=== PATIENT | male | born 1950 | race African-American/Black ===

== ENCOUNTER 2017-03-21 05:45 | Inpatient (IN) ==
[2017-03-21 07:39] LABS: Basophils % 0.3 % (0.0-0.8); Eosinophils # 0.2 10*3/uL (0.0-0.87); Eosinophils % 1.5 % (0.00-10.9); Hemoglobin 13.4 GM/DL (14.0-18.0); Immature Granulocytes % 0.4 %; Immature Granulocytes Absolute 0.05 #; Lymphocytes # 1.9 10*3/uL (1.4-4.0); Lymphocytes % 16.1 % (21.2-54.2); Mean Corpuscular HGB Conc 31.2 GM/DL (32-36); Mean Corpuscular Hemoglobin 26 PG (27-34); Mean Corpuscular Volume 81.9 FL (87-102); Mean Platelet Volume 9.3 FL (9.6-12.0); Monocytes % 8.5 % (1.7-12.7); NRBC # 0.02 10*3/uL; Neutrophils # 8.6 10*3/uL (1.4-7.4); Neutrophils % 73.2 % (38.7-73.9); Platelet Count 194 T/CUMM (130-400); Red Blood Count 5.25 MC/CUMM (3.8-5.5); White Blood Count 11.7 T/CUMM (4-12)
[2017-03-21 08:13] LABS: Albumin 3.6 G/DL (3.4-5.0); Calcium 9.5 MG/DL (8.5-10.1); Osmolality,Calculated 273.2 MOS/KG (273-304); Potassium 3.7 MMOL/L (3.5-5.1); Total Protein 8.3 G/DL (6.4-8.3)
[2017-03-21 08:14] LABS: INR 5.1
[2017-03-21] MEDS ORDERED: ONDANSETRON 4 MG/2 ML VIAL IV STA (08:31)
[2017-03-21 08:47] LABS: Apearance,Urine CLOUDY (Clear); Bacteria,Urine Many /HPF (Few); Bilirubin,Urine Negative (Negative); Blood, Urine Large mg/dL (Negative); Glucose,Urine (UA) Negative (Negative); Ketones,Urine Negative (Negative); Mucus,Urine Many /LPF (Occasional); Nitrite,Urine Negative (Negative); Protein,Urine 30 MG/DL; RBC,Urine 30 /HPF (0-4); Urine Color Yellow (Yellow); Urine Specific Gravity 1.021 (1.001-1.035); Urine Urobilinogen < 2.0 EU/DL (0.2-1.0); WBC,Urine 137 /HPF (0-6)
[2017-03-21] MEDS ORDERED: cefTRIAXone 1,000 MG in SODIUM CHLORIDE 0.9% 100 ML IV STA (08:51)
[2017-03-21] MEDS ORDERED: ONDANSETRON 4 MG/2 ML VIAL ONE (09:26)
[2017-03-21] MEDS ORDERED: cefTRIAXone 1,000 MG VIAL ONE (09:26)
[2017-03-21] MEDS ORDERED: SODIUM CHLORIDE 0.9% IV STA (09:37)
[2017-03-21] MEDS ORDERED: CEFTRIAXONE IV STA (09:37)
[2017-03-21] MEDS ORDERED: ONDANSETRON 4 MG/2 ML VIAL IV PRN (09:50)
[2017-03-21] MEDS ORDERED: BISACODYL 10 MG SUPP RECTAL PRN (10:02)
[2017-03-21] MEDS: SODIUM CHLORIDE 0.9% 1,000 ML IV SCH ×3 (11:10→22:09)
[2017-03-21] MEDS: metroNIDAZOLE INJ 500 MG in PREMIX 1 EACH IV SCH ×2 (13:10→17:37)
[2017-03-21] MEDS: CIPROFLOXACIN INJ 400 MG in PREMIX 1 EACH IV SCH ×2 (14:20→22:01)
[2017-03-21] MEDS: MORPHINE 2 MG/1 ML SYRINGE IV PRN (16:47)
[2017-03-21] MEDS ORDERED: ALBUTEROL 2.5 MG/3 ML NEB RESP TX PRN (19:00)
[2017-03-21] MEDS: traZODone 50 MG TABLET PO SCH (21:41)
[2017-03-21] MEDS: CARVEDILOL 12.5 MG TABLET PO SCH (21:41)
[2017-03-21] MEDS: tiZANidine 4 MG TABLET PO SCH (21:41)
[2017-03-22] MEDS: metroNIDAZOLE INJ 500 MG in PREMIX 1 EACH IV SCH ×3 (01:31→17:21)
[2017-03-22] MEDS: SODIUM CHLORIDE 0.9% 1,000 ML IV SCH ×2 (06:32→15:52)
[2017-03-22 06:37] LABS: Basophils % 0.3 % (0.0-0.8); Eosinophils # 0.2 10*3/uL (0.0-0.87); Eosinophils % 2.4 % (0.00-10.9); Immature Granulocytes % 0.4 %; Immature Granulocytes Absolute 0.04 #; Lymphocytes # 1.5 10*3/uL (1.4-4.0); Lymphocytes % 15.5 % (21.2-54.2); Mean Corpuscular HGB Conc 31.7 GM/DL (32-36); Mean Corpuscular Hemoglobin 26 PG (27-34); Mean Corpuscular Volume 82.5 FL (87-102); Mean Platelet Volume 9.9 FL (9.6-12.0); Monocytes # 1.1 10*3/uL (0.11-0.8); Monocytes % 11.8 % (1.7-12.7); Neutrophils # 6.7 10*3/uL (1.4-7.4); Neutrophils % 69.6 % (38.7-73.9); Platelet Count 212 T/CUMM (130-400); Red Blood Count 4.97 MC/CUMM (3.8-5.5); White Blood Count 9.6 T/CUMM (4-12)
[2017-03-22 07:08] LABS: Calcium 9.3 MG/DL (8.5-10.1); Osmolality,Calculated 277.7 MOS/KG (273-304); Potassium 3.7 MMOL/L (3.5-5.1)
[2017-03-22] MEDS: DILTIAZEM CD 180 MG CAPSULE PO SCH (08:52)
[2017-03-22] MEDS: tiZANidine 4 MG TABLET PO SCH ×2 (08:52→22:01)
[2017-03-22] MEDS: POLYETHYLENE GLYCOL POWDER 17 GM PACK PO SCH (08:52)
[2017-03-22] MEDS: CARVEDILOL 12.5 MG TABLET PO SCH ×2 (08:52→22:01)
[2017-03-22] MEDS ORDERED: PHENOL 1.4% THROAT SPRAY 177 ML BOTTLE PO PRN (10:57)
[2017-03-22] MEDS: CIPROFLOXACIN INJ 400 MG in PREMIX 1 EACH IV SCH (11:30)
[2017-03-22] MEDS: PANTOPRAZOLE 40 MG VIAL IV SCH ×2 (12:14→21:58)
[2017-03-22 16:30] LABS: Hematocrit 41.9 VOL% (42.0-52.0); Hemoglobin 12.7 GM/DL (14.0-18.0)
[2017-03-22] MEDS: traZODone 50 MG TABLET PO SCH (22:01)
[2017-03-22] MEDS: MORPHINE 2 MG/1 ML SYRINGE IV PRN (22:02)
[2017-03-23] MEDS: CIPROFLOXACIN INJ 400 MG in PREMIX 1 EACH IV SCH ×2 (00:31→16:41)
[2017-03-23] MEDS: SODIUM CHLORIDE 0.9% 1,000 ML IV SCH ×3 (00:38→14:14)
[2017-03-23] MEDS ORDERED: hydrALAZINE 20 MG/1 ML VIAL IV PRN (00:54)
[2017-03-23] MEDS: MORPHINE 2 MG/1 ML SYRINGE IV PRN ×2 (02:26→06:24)
[2017-03-23] MEDS: metroNIDAZOLE INJ 500 MG in PREMIX 1 EACH IV SCH ×2 (04:19→17:49)
[2017-03-23 06:37] LABS: Basophils % 0.3 % (0.0-0.8); Eosinophils # 0.2 10*3/uL (0.0-0.87); Hematocrit 42.6 VOL% (42.0-52.0); Hemoglobin 13.2 GM/DL (14.0-18.0); Immature Granulocytes % 0.4 %; Immature Granulocytes Absolute 0.04 #; Lymphocytes # 1.4 10*3/uL (1.4-4.0); Lymphocytes % 13.8 % (21.2-54.2); Mean Corpuscular Hemoglobin 26 PG (27-34); Mean Corpuscular Volume 82.7 FL (87-102); Monocytes # 1.1 10*3/uL (0.11-0.8); Monocytes % 11.2 % (1.7-12.7); Neutrophils # 7.1 10*3/uL (1.4-7.4); Neutrophils % 72.3 % (38.7-73.9); Platelet Count 200 T/CUMM (130-400); Red Blood Count 5.15 MC/CUMM (3.8-5.5); Red Cell Distribution Width 16.8 % (9.3-17.3); White Blood Count 9.9 T/CUMM (4-12)
[2017-03-23 07:05] LABS: Calcium 9.4 MG/DL (8.5-10.1); Osmolality,Calculated 282.3 MOS/KG (273-304); Potassium 3.2 MMOL/L (3.5-5.1)
[2017-03-23 07:11] LABS: INR 7.7
[2017-03-23] MEDS ORDERED: SODIUM CHLORIDE 0.9% 1,000 ML IV ONE (07:46)
[2017-03-23 07:58] LABS: Hematocrit 43.4 VOL% (42.0-52.0)
[2017-03-23 08:43] LABS: INR 7.6; PT Patient Result 74.3 SECS
[2017-03-23] MEDS ORDERED: PHYTONADIONE 10 MG/1 ML AMP SUBCUT ONE (08:55)
[2017-03-23] MEDS ORDERED: SODIUM CHLORIDE 0.9% 1,000 ML IV PRN (08:55)
[2017-03-23] MEDS ORDERED: FUROSEMIDE 40 MG/4 ML VIAL IV ONE (08:55)
[2017-03-23 09:52] LABS: Lactic Acid 0.7 MMOL/L (0.4-2.0)
[2017-03-23 10:11] LABS: Albumin 3.5 G/DL (3.4-5.0); Bilirubin,Direct 0.31 MG/DL (0.0-0.20); Bilirubin,Indirect 0.9 MG/DL (0.0-1.0); Bilirubin,Total 1.2 MG/DL (0.2-1.0); Total Protein 7.9 G/DL (6.4-8.3)
[2017-03-23] MEDS: PANTOPRAZOLE 40 MG VIAL IV SCH ×2 (10:19→21:02)
[2017-03-23] MEDS: DILTIAZEM CD 180 MG CAPSULE PO SCH (10:19)
[2017-03-23] MEDS: DEXTROSE 5% NACL 0.9% 1,000 ML IV SCH (10:19)
[2017-03-23] MEDS: tiZANidine 4 MG TABLET PO SCH ×2 (10:20→21:00)
[2017-03-23] MEDS: CARVEDILOL 12.5 MG TABLET PO SCH (10:20)
[2017-03-23] MEDS: POLYETHYLENE GLYCOL POWDER 17 GM PACK PO SCH (10:20)
[2017-03-23] MEDS: BISACODYL 10 MG SUPP RECTAL SCH (14:20)
[2017-03-23] MEDS: METOPROLOL TARTRATE 5 MG/5 ML VIAL IV SCH ×2 (14:25→18:30)
[2017-03-23 18:50] LABS: Hemoglobin 12.1 GM/DL (14.0-18.0)
[2017-03-23] MEDS: traZODone 50 MG TABLET PO SCH (21:00)
[2017-03-24 00:19] LABS: Hematocrit 40.3 VOL% (42.0-52.0)
[2017-03-24 00:22] LABS: Hemoglobin 12.2 GM/DL (14.0-18.0)
[2017-03-24] MEDS ORDERED: SODIUM CHLORIDE 0.9% 500 ML IV ONE (02:02)
[2017-03-24] MEDS: METOPROLOL TARTRATE 5 MG/5 ML VIAL IV SCH ×2 (02:16→07:28)
[2017-03-24] MEDS: metroNIDAZOLE INJ 500 MG in PREMIX 1 EACH IV SCH ×3 (02:17→20:40)
[2017-03-24] MEDS: DEXTROSE 5% NACL 0.9% 1,000 ML IV SCH ×4 (03:31→20:43)
[2017-03-24] MEDS: CIPROFLOXACIN INJ 400 MG in PREMIX 1 EACH IV SCH ×2 (04:40→15:00)
[2017-03-24 05:09] LABS: Basophils % 0.2 % (0.0-0.8); Eosinophils # 0.2 10*3/uL (0.0-0.87); Eosinophils % 2.1 % (0.00-10.9); Hematocrit 38.4 VOL% (42.0-52.0); Hemoglobin 11.8 GM/DL (14.0-18.0); Immature Granulocytes % 0.4 %; Immature Granulocytes Absolute 0.04 #; Lymphocytes # 1.2 10*3/uL (1.4-4.0); Mean Corpuscular HGB Conc 30.7 GM/DL (32-36); Mean Corpuscular Hemoglobin 26 PG (27-34); Mean Corpuscular Volume 83.7 FL (87-102); Mean Platelet Volume 9.6 FL (9.6-12.0); Monocytes # 0.9 10*3/uL (0.11-0.8); Monocytes % 9.7 % (1.7-12.7); Neutrophils # 6.9 10*3/uL (1.4-7.4); Neutrophils % 74.6 % (38.7-73.9); Platelet Count 178 T/CUMM (130-400); Red Blood Count 4.59 MC/CUMM (3.8-5.5); Red Cell Distribution Width 16.6 % (9.3-17.3); White Blood Count 9.2 T/CUMM (4-12)
[2017-03-24 05:29] LABS: INR 1.6
[2017-03-24 05:39] LABS: Calcium 9.1 MG/DL (8.5-10.1); Potassium 3.2 MMOL/L (3.5-5.1)
[2017-03-24 05:42] LABS: Albumin 3.5 G/DL (3.4-5.0); Bilirubin,Total 2.7 MG/DL (0.2-1.0); Calcium 9.2 MG/DL (8.5-10.1); Hematocrit 38.1 VOL% (42.0-52.0); Hemoglobin 11.5 GM/DL (14.0-18.0); Magnesium 2.1 MG/DL (1.8-2.4); Phosphorous 2.5 MG/DL (2.5-4.9); Potassium 3.1 MMOL/L (3.5-5.1); Total Protein 7.6 G/DL (6.4-8.3)
[2017-03-24 05:44] LABS: PT Patient Result 16.9 SECS
[2017-03-24] MEDS ORDERED: POTASSIUM CHLORIDE RIDER 10 MEQ in PREMIX 1 EACH IV PRN (07:12)
[2017-03-24 10:16] LABS: Hematocrit 38.8 VOL% (42.0-52.0); Hemoglobin 11.7 GM/DL (14.0-18.0)
[2017-03-24] MEDS: PANTOPRAZOLE 40 MG VIAL IV SCH ×2 (10:17→20:40)
[2017-03-24] MEDS ORDERED: MIDAZOLAM 2 MG/2 ML VIAL ONE (11:27)
[2017-03-24] MEDS ORDERED: fentaNYL 100 MCG/2 ML VIAL ONE (11:28)
[2017-03-24] MEDS ORDERED: PROPOFOL 200 MG/20 ML VIAL IV ONE (11:29)
[2017-03-24] MEDS ORDERED: SUCCINYLCHOLINE 200 MG/10 ML VIAL ONE (11:30)
[2017-03-24] MEDS: POLYETHYLENE GLYCOL POWDER 17 GM PACK PO SCH (12:35)
[2017-03-24] MEDS: BISACODYL 10 MG SUPP RECTAL SCH (12:35)
[2017-03-24] MEDS: tiZANidine 4 MG TABLET PO SCH ×2 (12:42→20:39)
[2017-03-24] MEDS: DILTIAZEM CD 180 MG CAPSULE PO SCH (12:42)
[2017-03-24] MEDS: traZODone 50 MG TABLET PO SCH (20:39)
[2017-03-24] MEDS ORDERED: SODIUM CHLORIDE 0.9% IV ONE (23:00)
[2017-03-24] MEDS ORDERED: POTASSIUM CHLORIDE RIDER IV ONE (23:00)
[2017-03-24] MEDS ORDERED: POTASSIUM CHLORIDE INJ 40 MEQ in SODIUM CHLORIDE 0.9% 500 ML IV ONE (23:30)
[2017-03-25] MEDS: CIPROFLOXACIN INJ 400 MG in PREMIX 1 EACH IV SCH ×2 (05:35→22:20)
[2017-03-25 05:42] LABS: Basophils % 0.2 % (0.0-0.8); Eosinophils # 0.3 10*3/uL (0.0-0.87); Eosinophils % 3.1 % (0.00-10.9); Hematocrit 34.6 VOL% (42.0-52.0); Hemoglobin 10.3 GM/DL (14.0-18.0); Immature Granulocytes % 0.4 %; Immature Granulocytes Absolute 0.04 #; Lymphocytes # 1.2 10*3/uL (1.4-4.0); Lymphocytes % 12.3 % (21.2-54.2); Mean Corpuscular HGB Conc 29.8 GM/DL (32-36); Mean Corpuscular Hemoglobin 26 PG (27-34); Mean Corpuscular Volume 86.3 FL (87-102); Mean Platelet Volume 9.9 FL (9.6-12.0); Monocytes # 0.9 10*3/uL (0.11-0.8); Neutrophils # 7.2 10*3/uL (1.4-7.4); Platelet Count 175 T/CUMM (130-400); Red Blood Count 4.01 MC/CUMM (3.8-5.5); White Blood Count 9.6 T/CUMM (4-12)
[2017-03-25] MEDS: metroNIDAZOLE INJ 500 MG in PREMIX 1 EACH IV SCH ×3 (05:58→21:03)
[2017-03-25 06:27] LABS: Albumin 3.2 G/DL (3.4-5.0); Bilirubin,Total 2.1 MG/DL (0.2-1.0); Calcium 8.8 MG/DL (8.5-10.1); Magnesium 1.9 MG/DL (1.8-2.4); Osmolality,Calculated 281.3 MOS/KG (273-304); Phosphorous 2.1 MG/DL (2.5-4.9); Potassium 3.4 MMOL/L (3.5-5.1); Total Protein 7.2 G/DL (6.4-8.3)
[2017-03-25 06:29] LABS: INR 1.6; PT Patient Result 16.5 SECS
[2017-03-25] MEDS: PANTOPRAZOLE 40 MG VIAL IV SCH ×2 (10:54→21:04)
[2017-03-25] MEDS: DILTIAZEM CD 180 MG CAPSULE PO SCH (10:54)
[2017-03-25] MEDS: tiZANidine 4 MG TABLET PO SCH ×2 (10:54→21:04)
[2017-03-25] MEDS: BISACODYL 10 MG SUPP RECTAL SCH (10:54)
[2017-03-25] MEDS: POLYETHYLENE GLYCOL POWDER 17 GM PACK PO SCH (10:55)
[2017-03-25] MEDS ORDERED: SODIUM PHOSPHATE INJ 15 MMOL in SODIUM CHLORIDE 0.9% 250 ML IV ONE (12:00)
[2017-03-25] MEDS: DEXTROSE 5% NACL 0.9% 1,000 ML IV SCH (13:48)
[2017-03-25] MEDS: traZODone 50 MG TABLET PO SCH (21:04)
[2017-03-26] MEDS: DEXTROSE 5% NACL 0.9% 1,000 ML IV SCH ×3 (03:30→18:50)
[2017-03-26] MEDS: metroNIDAZOLE INJ 500 MG in PREMIX 1 EACH IV SCH ×2 (04:37→15:39)
[2017-03-26 09:47] LABS: Basophils % 0.5 % (0.0-0.8); Eosinophils # 0.2 10*3/uL (0.0-0.87); Eosinophils % 3.3 % (0.00-10.9); Hematocrit 31.4 VOL% (42.0-52.0); Hemoglobin 9.6 GM/DL (14.0-18.0); Immature Granulocytes % 0.4 %; Immature Granulocytes Absolute 0.02 #; Lymphocytes # 1.2 10*3/uL (1.4-4.0); Lymphocytes % 22.5 % (21.2-54.2); Mean Corpuscular HGB Conc 30.6 GM/DL (32-36); Mean Corpuscular Hemoglobin 26 PG (27-34); Mean Corpuscular Volume 85.3 FL (87-102); Mean Platelet Volume 9.5 FL (9.6-12.0); Monocytes # 0.6 10*3/uL (0.11-0.8); Monocytes % 11.1 % (1.7-12.7); Neutrophils # 3.4 10*3/uL (1.4-7.4); Neutrophils % 62.2 % (38.7-73.9); Platelet Count 171 T/CUMM (130-400); Red Blood Count 3.68 MC/CUMM (3.8-5.5); Red Cell Distribution Width 15.9 % (9.3-17.3); White Blood Count 5.5 T/CUMM (4-12)
[2017-03-26 09:55] LABS: INR 1.6; PT Patient Result 16.7 SECS
[2017-03-26] MEDS ORDERED: FLUMAZENIL 0.5 MG/5 ML VIAL IV ONE (10:00)
[2017-03-26] MEDS ORDERED: MIDAZOLAM 2 MG/2 ML VIAL ONE (10:00)
[2017-03-26] MEDS ORDERED: LIDOCAINE 2% 20 ML VIAL RESP TX ONE (10:00)
[2017-03-26] MEDS ORDERED: LIDOCAINE 2% VISCOUS 100 ML BOTTLE SWISH/SPIT ONE (10:00)
[2017-03-26] MEDS ORDERED: LIDOCAINE 1% 20 ML VIAL MISC INJ ONE (10:00)
[2017-03-26] MEDS: CIPROFLOXACIN INJ 400 MG in PREMIX 1 EACH IV SCH (11:13)
[2017-03-26] MEDS: BISACODYL 10 MG SUPP RECTAL SCH (11:13)
[2017-03-26] MEDS: PANTOPRAZOLE 40 MG VIAL IV SCH ×2 (11:14→22:02)
[2017-03-26] MEDS: tiZANidine 4 MG TABLET PO SCH ×2 (13:02→22:02)
[2017-03-26] MEDS: DILTIAZEM CD 180 MG CAPSULE PO SCH (13:02)
[2017-03-26] MEDS: POLYETHYLENE GLYCOL POWDER 17 GM PACK PO SCH (13:03)
[2017-03-26] MEDS: MEROPENEM 500 MG in SYRINGE 1 EACH IV SCH ×2 (14:12→22:01)
[2017-03-26] MEDS: VANCOMYCIN INJ 2,000 MG in SODIUM CHLORIDE 0.9% 500 ML IV SCH (15:03)
[2017-03-26] MEDS: traZODone 50 MG TABLET PO SCH (22:02)
[2017-03-27] MEDS: DEXTROSE 5% NACL 0.9% 1,000 ML IV SCH (03:50)
[2017-03-27] MEDS: MEROPENEM 500 MG in SYRINGE 1 EACH IV SCH ×3 (05:49→22:10)
[2017-03-27 06:29] LABS: Basophils % 0.8 % (0.0-0.8); Eosinophils # 0.2 10*3/uL (0.0-0.87); Eosinophils % 3.5 % (0.00-10.9); Hematocrit 31.5 VOL% (42.0-52.0); Hemoglobin 9.6 GM/DL (14.0-18.0); Immature Granulocytes % 0.4 %; Immature Granulocytes Absolute 0.02 #; Lymphocytes % 20.6 % (21.2-54.2); Mean Corpuscular HGB Conc 30.5 GM/DL (32-36); Mean Corpuscular Hemoglobin 26 PG (27-34); Mean Corpuscular Volume 83.8 FL (87-102); Monocytes # 0.5 10*3/uL (0.11-0.8); Monocytes % 10.8 % (1.7-12.7); Neutrophils # 3.1 10*3/uL (1.4-7.4); Neutrophils % 63.9 % (38.7-73.9); Platelet Count 188 T/CUMM (130-400); Red Blood Count 3.76 MC/CUMM (3.8-5.5); Red Cell Distribution Width 15.6 % (9.3-17.3); White Blood Count 4.8 T/CUMM (4-12)
[2017-03-27 06:37] LABS: INR 1.5; PT Patient Result 15.4 SECS
[2017-03-27 07:06] LABS: Albumin 2.7 G/DL (3.4-5.0); Bilirubin,Total 1.1 MG/DL (0.2-1.0); Calcium 8.2 MG/DL (8.5-10.1); Magnesium 1.8 MG/DL (1.8-2.4); Osmolality,Calculated 277.3 MOS/KG (273-304); Phosphorous 2.7 MG/DL (2.5-4.9); Total Protein 6.4 G/DL (6.4-8.3)
[2017-03-27] MEDS: PANTOPRAZOLE 40 MG VIAL IV SCH ×2 (09:13→22:17)
[2017-03-27] MEDS: DILTIAZEM CD 180 MG CAPSULE PO SCH (09:13)
[2017-03-27] MEDS: tiZANidine 4 MG TABLET PO SCH ×2 (09:13→22:10)
[2017-03-27] MEDS: BISACODYL 10 MG SUPP RECTAL SCH (09:13)
[2017-03-27] MEDS: POLYETHYLENE GLYCOL POWDER 17 GM PACK PO SCH (09:13)
[2017-03-27] MEDS ORDERED: POTASSIUM CHLORIDE INJ 50 MEQ in SODIUM CHLORIDE 0.9% 500 ML IV ONE (11:30)
[2017-03-27] MEDS: APIXABAN 5 MG TABLET PO SCH ×2 (13:04→22:10)
[2017-03-27] MEDS: VANCOMYCIN INJ 2,000 MG in SODIUM CHLORIDE 0.9% 500 ML IV SCH (17:40)
[2017-03-27] MEDS: traZODone 50 MG TABLET PO SCH (22:10)
[2017-03-28] MEDS: MEROPENEM 500 MG in SYRINGE 1 EACH IV SCH (04:23)
[2017-03-28] MEDS: DILTIAZEM CD 180 MG CAPSULE PO SCH (08:24)
[2017-03-28] MEDS: POLYETHYLENE GLYCOL POWDER 17 GM PACK PO SCH (08:24)
[2017-03-28] MEDS: BISACODYL 10 MG SUPP RECTAL SCH (08:24)
[2017-03-28] MEDS: APIXABAN 5 MG TABLET PO SCH (08:24)
[2017-03-28] MEDS: tiZANidine 4 MG TABLET PO SCH (08:24)
[2017-03-28] MEDS: PANTOPRAZOLE 40 MG VIAL IV SCH (08:25)
[2017-03-28 08:34] VITALS: BP 125/77
[2017-03-28] MEDS: DEXTROSE 5% NACL 0.9% 1,000 ML IV SCH (10:14)
== END 2017-03-28 10:15 | DRG 988 ==
LOC: EDUNIT# → EDBD → N.ED 05:45 → N.EDINP 09:20 → SUATTDRO 09:20 → N.5E 09:30 → N.CC 03-23 08:22 → N.2E 03-25 01:04
PROVIDERS: ATTEND Internal Medicine Geriatric Medicine

== ENCOUNTER 2017-06-02 11:49 | Inpatient (IN) ==
[2017-06-02 12:44] LABS: Basophils % 0.2 % (0.0-0.8); Eosinophils # 0.2 10*3/uL (0.0-0.87); Eosinophils % 2.1 % (0.00-10.9); Hematocrit 37.1 VOL% (42.0-52.0); Hemoglobin 11.6 GM/DL (14.0-18.0); Immature Granulocytes % 0.2 %; Immature Granulocytes Absolute 0.02 #; Lymphocytes % 11.5 % (21.2-54.2); Mean Corpuscular HGB Conc 31.3 GM/DL (32-36); Mean Corpuscular Hemoglobin 27 PG (27-34); Mean Corpuscular Volume 85.5 FL (87-102); Mean Platelet Volume 11.2 FL (9.6-12.0); Monocytes # 0.7 10*3/uL (0.11-0.8); Neutrophils # 6.6 10*3/uL (1.4-7.4); Platelet Count 179 T/CUMM (130-400); Red Blood Count 4.34 MC/CUMM (3.8-5.5); Red Cell Distribution Width 16.4 % (9.3-17.3); White Blood Count 8.5 T/CUMM (4-12)
[2017-06-02 12:48] LABS: INR 1.1; PT Patient Result 11.1 SECS; Partial Thromboplastin Time 29.1 SECS (0-40)
[2017-06-02] MEDS ORDERED: FUROSEMIDE 40 MG/4 ML VIAL IV STA (12:54)
[2017-06-02 13:02] LABS: Alanine Aminotransferase 11 U/L (16-61); Alkaline Phosphatase 69 U/L (45-117); Aspartate Amino Transferase 19 U/L (0-37); Blood Urea Nitrogen 10 MG/DL (7-18); Calcium 8.6 MG/DL (8.5-10.1); Glucose 105 MG/DL (74-106); Osmolality,Calculated 277.4 MOS/KG (273-304); Potassium 3.2 MMOL/L (3.5-5.1); Sodium 140 MMOL/L (136-145); Total Protein 6.9 G/DL (6.4-8.3); Troponin I Only < 0.015 NG/ML (0.00-0.045)
[2017-06-02 14:57] LABS: ABG Base Excess 16.5 MMOL/L (-2.5-2.5); ABG HCO3 40.5 MMOL/L (20-26); ABG Oxygen Saturation 96.1 % (95-100); ABG PH 7.315 (7.35-7.45); ABG PO2 86.3 MM HG (80-95); ABG TCO2 42.9 MMOL/L (23-27); Allen Test Positive
[2017-06-02 15:00] LABS: ABG PCO2 93.7 MM HG (35-48)
[2017-06-02] MEDS ORDERED: BISACODYL 10 MG SUPP RECTAL PRN (15:47)
[2017-06-02] MEDS ORDERED: ALBUTEROL 2.5 MG/3 ML NEB RESP TX PRN ×2 (15:47→15:55)
[2017-06-02] MEDS ORDERED: MAGNESIUM HYDROXIDE SUSP 30 ML UDCUP PO PRN (15:47)
[2017-06-02] MEDS ORDERED: ONDANSETRON 4 MG/2 ML VIAL IV PRN (15:55)
[2017-06-02] MEDS ORDERED: POTASSIUM CHLORIDE 20 MEQ TABLET PO PRN (16:05)
[2017-06-02] MEDS ORDERED: PANTOPRAZOLE 40 MG VIAL IV ONE (17:24)
[2017-06-02] MEDS: PANTOPRAZOLE 40 MG VIAL IV SCH (17:56)
[2017-06-02] MEDS: POTASSIUM CHLORIDE 20 MEQ TABLET PO SCH ×2 (18:04→22:09)
[2017-06-02] MEDS: METOCLOPRAMIDE 10 MG TABLET PO SCH (18:04)
[2017-06-02] MEDS: ERTAPENEM 1,000 MG in SODIUM CHLORIDE 0.9% 100 ML IV SCH (18:05)
[2017-06-02] MEDS: CARVEDILOL 12.5 MG TABLET PO SCH (22:08)
[2017-06-02] MEDS: ACETAMINOPHEN 325 MG TABLET PO SCH (22:08)
[2017-06-02] MEDS: FERROUS SULFATE 325 MG TABLET PO SCH (22:09)
[2017-06-02] MEDS: MENTHOL/ZINC OXIDE OINT 71 GM JAR TOP SCH (23:25)
[2017-06-03] MEDS: POTASSIUM CHLORIDE 20 MEQ TABLET PO SCH ×5 (02:16→16:25)
[2017-06-03 02:58] LABS: ABG Base Excess 18.6 MMOL/L (-2.5-2.5); ABG HCO3 42.7 MMOL/L (20-26); ABG PH 7.433 (7.35-7.45); ABG PO2 61.2 MM HG (80-95); Allen Test Positive; Pt O2 Delivery Device BIPAP
[2017-06-03 03:01] LABS: ABG PCO2 70.3 MM HG (35-48)
[2017-06-03 04:51] LABS: Basophils % 0.2 % (0.0-0.8); Eosinophils # 0.2 10*3/uL (0.0-0.87); Eosinophils % 2.9 % (0.00-10.9); Hematocrit 37.9 VOL% (42.0-52.0); Hemoglobin 11.4 GM/DL (14.0-18.0); Immature Granulocytes % 0.5 %; Immature Granulocytes Absolute 0.03 #; Lymphocytes # 0.9 10*3/uL (1.4-4.0); Lymphocytes % 13.6 % (21.2-54.2); Mean Corpuscular HGB Conc 30.1 GM/DL (32-36); Mean Corpuscular Hemoglobin 26 PG (27-34); Mean Corpuscular Volume 86.1 FL (87-102); Mean Platelet Volume 9.7 FL (9.6-12.0); Monocytes # 0.8 10*3/uL (0.11-0.8); Monocytes % 11.7 % (1.7-12.7); Neutrophils # 4.7 10*3/uL (1.4-7.4); Neutrophils % 71.1 % (38.7-73.9); Platelet Count 147 T/CUMM (130-400); White Blood Count 6.6 T/CUMM (4-12)
[2017-06-03 05:24] LABS: Calcium 9.1 MG/DL (8.5-10.1); Osmolality,Calculated 276.4 MOS/KG (273-304); Potassium 3.3 MMOL/L (3.5-5.1)
[2017-06-03] MEDS ORDERED: FUROSEMIDE 40 MG/4 ML VIAL IV SCH (09:00)
[2017-06-03] MEDS: METOCLOPRAMIDE 10 MG TABLET PO SCH ×3 (09:18→16:25)
[2017-06-03] MEDS: ALLOPURINOL 300 MG TABLET PO SCH (09:19)
[2017-06-03] MEDS: POLYETHYLENE GLYCOL POWDER 17 GM PACK PO SCH (09:19)
[2017-06-03] MEDS: LINACLOTIDE 145 MCG CAPSULE PO SCH (09:19)
[2017-06-03] MEDS: FERROUS SULFATE 325 MG TABLET PO SCH ×2 (09:21→21:51)
[2017-06-03] MEDS: MULTIVITAMIN (CENTRUM) TABLET PO SCH (09:21)
[2017-06-03] MEDS: ACETAMINOPHEN 325 MG TABLET PO SCH ×2 (09:21→21:51)
[2017-06-03] MEDS: CARVEDILOL 12.5 MG TABLET PO SCH ×3 (09:21→21:51)
[2017-06-03] MEDS: DILTIAZEM CD 180 MG CAPSULE PO SCH (09:22)
[2017-06-03] MEDS: CALCIUM (CARBONATE)/VITAMIN D 600 MG-400 UNIT TABLET PO SCH (09:23)
[2017-06-03] MEDS: MENTHOL/ZINC OXIDE OINT 71 GM JAR TOP SCH ×3 (09:23→21:51)
[2017-06-03] MEDS: ENOXAPARIN 40 MG/0.4 ML SYRINGE SUBCUT SCH (12:14)
[2017-06-03] MEDS: PANTOPRAZOLE 40 MG VIAL IV SCH (16:26)
[2017-06-03] MEDS: ERTAPENEM 1,000 MG in SODIUM CHLORIDE 0.9% 100 ML IV SCH (17:46)
[2017-06-04 05:19] LABS: Pt O2 Delivery Device Ventilator
[2017-06-04 05:21] LABS: ABG Base Excess 9.5 MMOL/L (-2.5-2.5); ABG HCO3 33.3 MMOL/L (20-26); ABG Oxygen Saturation 98.5 % (95-100); ABG PH 7.298 (7.35-7.45); ABG TCO2 35.6 MMOL/L (23-27)
[2017-06-04 05:23] LABS: ABG PCO2 80.6 MM HG (35-48)
[2017-06-04 06:18] LABS: Osmolality,Calculated 277.4 MOS/KG (273-304); Potassium 4.3 MMOL/L (3.5-5.1)
[2017-06-04 06:19] LABS: Calcium 8.9 MG/DL (8.5-10.1); Osmolality,Calculated 277.4 MOS/KG (273-304); Potassium 4.2 MMOL/L (3.5-5.1)
[2017-06-04] MEDS: LINACLOTIDE 145 MCG CAPSULE PO SCH (09:02)
[2017-06-04] MEDS: METOCLOPRAMIDE 10 MG TABLET PO SCH ×3 (09:02→16:31)
[2017-06-04] MEDS: MENTHOL/ZINC OXIDE OINT 71 GM JAR TOP SCH ×3 (09:03→21:49)
[2017-06-04] MEDS: POLYETHYLENE GLYCOL POWDER 17 GM PACK PO SCH (09:03)
[2017-06-04] MEDS: ALLOPURINOL 300 MG TABLET PO SCH (09:03)
[2017-06-04] MEDS: DILTIAZEM CD 180 MG CAPSULE PO SCH (09:04)
[2017-06-04] MEDS: CALCIUM (CARBONATE)/VITAMIN D 600 MG-400 UNIT TABLET PO SCH (09:04)
[2017-06-04] MEDS: CARVEDILOL 12.5 MG TABLET PO SCH ×2 (09:05→21:49)
[2017-06-04] MEDS: MULTIVITAMIN (CENTRUM) TABLET PO SCH (09:05)
[2017-06-04] MEDS: FERROUS SULFATE 325 MG TABLET PO SCH ×2 (09:05→21:49)
[2017-06-04] MEDS: ACETAMINOPHEN 325 MG TABLET PO SCH ×2 (09:06→21:48)
[2017-06-04] MEDS: ENOXAPARIN 40 MG/0.4 ML SYRINGE SUBCUT SCH (12:03)
[2017-06-04] MEDS: PANTOPRAZOLE 40 MG VIAL IV SCH (16:31)
[2017-06-04] MEDS: ERTAPENEM 1,000 MG in SODIUM CHLORIDE 0.9% 100 ML IV SCH (18:00)
[2017-06-05 03:44] LABS: ABG Base Excess 6.5 MMOL/L (-2.5-2.5); ABG HCO3 35.2 MMOL/L (20-26); ABG PH 7.306 (7.35-7.45); ABG PO2 108.1 MM HG (80-95); ABG TCO2 37.4 MMOL/L (23-27)
[2017-06-05 03:48] LABS: ABG PCO2 72.1 MM HG (35-48)
[2017-06-05 05:52] LABS: Calcium 9.5 MG/DL (8.5-10.1); Osmolality,Calculated 276.5 MOS/KG (273-304); Potassium 4.3 MMOL/L (3.5-5.1)
[2017-06-05] MEDS: DILTIAZEM CD 180 MG CAPSULE PO SCH (08:55)
[2017-06-05] MEDS: CALCIUM (CARBONATE)/VITAMIN D 600 MG-400 UNIT TABLET PO SCH (08:55)
[2017-06-05] MEDS: MULTIVITAMIN (CENTRUM) TABLET PO SCH (08:55)
[2017-06-05] MEDS: ALLOPURINOL 300 MG TABLET PO SCH (08:56)
[2017-06-05] MEDS: ACETAMINOPHEN 325 MG TABLET PO SCH ×2 (08:56→20:56)
[2017-06-05] MEDS: CARVEDILOL 12.5 MG TABLET PO SCH ×2 (08:56→20:56)
[2017-06-05] MEDS: POLYETHYLENE GLYCOL POWDER 17 GM PACK PO SCH (08:56)
[2017-06-05] MEDS: LINACLOTIDE 145 MCG CAPSULE PO SCH (08:56)
[2017-06-05] MEDS: FERROUS SULFATE 325 MG TABLET PO SCH ×2 (08:56→20:55)
[2017-06-05] MEDS: METOCLOPRAMIDE 10 MG TABLET PO SCH ×3 (08:56→17:33)
[2017-06-05] MEDS: MENTHOL/ZINC OXIDE OINT 71 GM JAR TOP SCH ×3 (08:57→20:58)
[2017-06-05 10:13] LABS: ABG Base Excess 6.6 MMOL/L (-2.5-2.5); ABG HCO3 30.4 MMOL/L (20-26); ABG Oxygen Saturation 94.9 % (95-100); ABG PH 7.305 (7.35-7.45); ABG PO2 78.5 MM HG (80-95); ABG TCO2 32.1 MMOL/L (23-27)
[2017-06-05 10:18] LABS: ABG PCO2 71.9 MM HG (35-48)
[2017-06-05] MEDS: ENOXAPARIN 40 MG/0.4 ML SYRINGE SUBCUT SCH (11:41)
[2017-06-05] MEDS: PANTOPRAZOLE 40 MG VIAL IV SCH (17:33)
[2017-06-05] MEDS: ERTAPENEM 1,000 MG in SODIUM CHLORIDE 0.9% 100 ML IV SCH (17:33)
[2017-06-06 03:49] LABS: ABG Base Excess 4.4 MMOL/L (-2.5-2.5); ABG HCO3 28.2 MMOL/L (20-26); ABG Oxygen Saturation 92.3 % (95-100); ABG PH 7.307 (7.35-7.45); ABG PO2 67.9 MM HG (80-95); ABG TCO2 29.5 MMOL/L (23-27)
[2017-06-06 05:13] LABS: Calcium 9.4 MG/DL (8.5-10.1); Osmolality,Calculated 279.5 MOS/KG (273-304); Potassium 4.1 MMOL/L (3.5-5.1)
[2017-06-06] MEDS: LINACLOTIDE 145 MCG CAPSULE PO SCH (08:07)
[2017-06-06] MEDS: POLYETHYLENE GLYCOL POWDER 17 GM PACK PO SCH (08:07)
[2017-06-06] MEDS: ACETAMINOPHEN 325 MG TABLET PO SCH ×2 (08:07→21:51)
[2017-06-06] MEDS: CARVEDILOL 12.5 MG TABLET PO SCH ×2 (08:08→21:51)
[2017-06-06] MEDS: MULTIVITAMIN (CENTRUM) TABLET PO SCH (08:08)
[2017-06-06] MEDS: CALCIUM (CARBONATE)/VITAMIN D 600 MG-400 UNIT TABLET PO SCH (08:08)
[2017-06-06] MEDS: METOCLOPRAMIDE 10 MG TABLET PO SCH ×3 (08:08→16:38)
[2017-06-06] MEDS: MENTHOL/ZINC OXIDE OINT 71 GM JAR TOP SCH ×3 (08:08→21:50)
[2017-06-06] MEDS: ALLOPURINOL 300 MG TABLET PO SCH (08:08)
[2017-06-06] MEDS: DILTIAZEM CD 180 MG CAPSULE PO SCH (08:08)
[2017-06-06] MEDS: FERROUS SULFATE 325 MG TABLET PO SCH ×2 (08:08→21:50)
[2017-06-06] MEDS: ENOXAPARIN 40 MG/0.4 ML SYRINGE SUBCUT SCH (11:17)
[2017-06-06] MEDS: ERTAPENEM 1,000 MG in SODIUM CHLORIDE 0.9% 100 ML IV SCH (19:40)
[2017-06-06] MEDS: PANTOPRAZOLE 40 MG TABLET PO SCH (21:50)
[2017-06-06] MEDS: tiZANidine 4 MG TABLET PO SCH (21:50)
[2017-06-07] MEDS: ACETAMINOPHEN 325 MG TABLET PO PRN (01:53)
[2017-06-07 04:17] LABS: ABG Base Excess 4.5 MMOL/L (-2.5-2.5); ABG HCO3 32.3 MMOL/L (20-26); ABG PH 7.321 (7.35-7.45); ABG PO2 78.7 MM HG (80-95); ABG TCO2 34.3 MMOL/L (23-27)
[2017-06-07 04:25] LABS: Calcium 9.2 MG/DL (8.5-10.1)
[2017-06-07 04:26] LABS: Osmolality,Calculated 275.7 MOS/KG (273-304); Potassium 3.7 MMOL/L (3.5-5.1)
[2017-06-07] MEDS: METOCLOPRAMIDE 10 MG TABLET PO SCH ×3 (09:50→17:46)
[2017-06-07] MEDS: LINACLOTIDE 145 MCG CAPSULE PO SCH (09:50)
[2017-06-07] MEDS: ALLOPURINOL 300 MG TABLET PO SCH (09:51)
[2017-06-07] MEDS: POLYETHYLENE GLYCOL POWDER 17 GM PACK PO SCH (09:51)
[2017-06-07] MEDS: MULTIVITAMIN (CENTRUM) TABLET PO SCH (09:52)
[2017-06-07] MEDS: CALCIUM (CARBONATE)/VITAMIN D 600 MG-400 UNIT TABLET PO SCH (09:52)
[2017-06-07] MEDS: DILTIAZEM CD 180 MG CAPSULE PO SCH (09:52)
[2017-06-07] MEDS: FERROUS SULFATE 325 MG TABLET PO SCH ×2 (09:53→21:37)
[2017-06-07] MEDS: PANTOPRAZOLE 40 MG TABLET PO SCH ×2 (09:53→21:38)
[2017-06-07] MEDS: ACETAMINOPHEN 325 MG TABLET PO SCH ×2 (09:53→21:37)
[2017-06-07] MEDS: CARVEDILOL 12.5 MG TABLET PO SCH ×2 (09:53→21:37)
[2017-06-07] MEDS: tiZANidine 4 MG TABLET PO SCH ×2 (09:54→21:37)
[2017-06-07] MEDS: MENTHOL/ZINC OXIDE OINT 71 GM JAR TOP SCH ×3 (11:31→21:37)
[2017-06-07] MEDS: ENOXAPARIN 40 MG/0.4 ML SYRINGE SUBCUT SCH (12:21)
[2017-06-07] MEDS: ERTAPENEM 1,000 MG in SODIUM CHLORIDE 0.9% 100 ML IV SCH (17:46)
[2017-06-08 03:54] LABS: ABG Base Excess 3.1 MMOL/L (-2.5-2.5); ABG HCO3 30.9 MMOL/L (20-26); ABG Oxygen Saturation 96.1 % (95-100); ABG PCO2 62.8 MM HG (35-48); ABG PO2 88.6 MM HG (80-95); ABG TCO2 32.8 MMOL/L (23-27)
[2017-06-08 06:12] LABS: Calcium 9.3 MG/DL (8.5-10.1); Osmolality,Calculated 278.5 MOS/KG (273-304); Potassium 3.5 MMOL/L (3.5-5.1)
[2017-06-08] MEDS: DILTIAZEM CD 180 MG CAPSULE PO SCH (10:34)
[2017-06-08] MEDS: ALLOPURINOL 300 MG TABLET PO SCH (10:36)
[2017-06-08] MEDS: tiZANidine 4 MG TABLET PO SCH ×2 (10:36→20:43)
[2017-06-08] MEDS: PANTOPRAZOLE 40 MG TABLET PO SCH ×2 (10:36→20:43)
[2017-06-08] MEDS: FERROUS SULFATE 325 MG TABLET PO SCH ×2 (10:37→20:43)
[2017-06-08] MEDS: METOCLOPRAMIDE 10 MG TABLET PO SCH ×3 (10:37→17:59)
[2017-06-08] MEDS: ACETAMINOPHEN 325 MG TABLET PO PRN (10:37)
[2017-06-08] MEDS: MULTIVITAMIN (CENTRUM) TABLET PO SCH (10:38)
[2017-06-08] MEDS: CALCIUM (CARBONATE)/VITAMIN D 600 MG-400 UNIT TABLET PO SCH (10:39)
[2017-06-08] MEDS: LINACLOTIDE 145 MCG CAPSULE PO SCH (10:39)
[2017-06-08] MEDS: CARVEDILOL 12.5 MG TABLET PO SCH ×2 (10:39→20:43)
[2017-06-08] MEDS: POLYETHYLENE GLYCOL POWDER 17 GM PACK PO SCH (11:34)
[2017-06-08] MEDS: ACETAMINOPHEN 325 MG TABLET PO SCH ×2 (11:34→20:51)
[2017-06-08] MEDS: MENTHOL/ZINC OXIDE OINT 71 GM JAR TOP SCH ×3 (13:42→20:45)
[2017-06-08] MEDS: ENOXAPARIN 40 MG/0.4 ML SYRINGE SUBCUT SCH (13:42)
[2017-06-08] MEDS: ERTAPENEM 1,000 MG in SODIUM CHLORIDE 0.9% 100 ML IV SCH (17:58)
[2017-06-09 05:45] LABS: Basophils % 0.5 % (0.0-0.8); Eosinophils # 0.3 10*3/uL (0.0-0.87); Eosinophils % 4.7 % (0.00-10.9); Hematocrit 38.8 VOL% (42.0-52.0); Hemoglobin 11.6 GM/DL (14.0-18.0); Immature Granulocytes % 0.6 %; Immature Granulocytes Absolute 0.04 #; Lymphocytes # 1.6 10*3/uL (1.4-4.0); Lymphocytes % 24.5 % (21.2-54.2); Mean Corpuscular HGB Conc 29.9 GM/DL (32-36); Mean Corpuscular Hemoglobin 26 PG (27-34); Mean Corpuscular Volume 86.2 FL (87-102); Mean Platelet Volume 9.6 FL (9.6-12.0); Monocytes # 0.8 10*3/uL (0.11-0.8); Monocytes % 12.1 % (1.7-12.7); Neutrophils # 3.8 10*3/uL (1.4-7.4); Neutrophils % 57.6 % (38.7-73.9); Platelet Count 208 T/CUMM (130-400); Red Cell Distribution Width 15.9 % (9.3-17.3); White Blood Count 6.6 T/CUMM (4-12)
[2017-06-09 06:16] LABS: Calcium 9.1 MG/DL (8.5-10.1); Osmolality,Calculated 280.4 MOS/KG (273-304); Potassium 3.5 MMOL/L (3.5-5.1)
[2017-06-09] MEDS: LINACLOTIDE 145 MCG CAPSULE PO SCH (09:43)
[2017-06-09] MEDS: FERROUS SULFATE 325 MG TABLET PO SCH ×2 (09:44→21:10)
[2017-06-09] MEDS: CARVEDILOL 12.5 MG TABLET PO SCH ×2 (09:44→21:10)
[2017-06-09] MEDS: ALLOPURINOL 300 MG TABLET PO SCH (09:46)
[2017-06-09] MEDS: PANTOPRAZOLE 40 MG TABLET PO SCH ×2 (09:47→21:10)
[2017-06-09] MEDS: tiZANidine 4 MG TABLET PO SCH ×2 (09:47→21:10)
[2017-06-09] MEDS: DILTIAZEM CD 180 MG CAPSULE PO SCH (09:47)
[2017-06-09] MEDS: MULTIVITAMIN (CENTRUM) TABLET PO SCH (09:48)
[2017-06-09] MEDS: METOCLOPRAMIDE 10 MG TABLET PO SCH ×3 (09:49→17:44)
[2017-06-09] MEDS: CALCIUM (CARBONATE)/VITAMIN D 600 MG-400 UNIT TABLET PO SCH (09:49)
[2017-06-09] MEDS: POLYETHYLENE GLYCOL POWDER 17 GM PACK PO SCH (11:06)
[2017-06-09] MEDS: ACETAMINOPHEN 325 MG TABLET PO SCH ×2 (11:07→21:10)
[2017-06-09] MEDS: ENOXAPARIN 40 MG/0.4 ML SYRINGE SUBCUT SCH (11:26)
[2017-06-09] MEDS: MENTHOL/ZINC OXIDE OINT 71 GM JAR TOP SCH ×3 (12:51→21:12)
[2017-06-09] MEDS: ERTAPENEM 1,000 MG in SODIUM CHLORIDE 0.9% 100 ML IV SCH (17:44)
[2017-06-10] MEDS: METOCLOPRAMIDE 10 MG TABLET PO SCH ×2 (09:34→11:49)
[2017-06-10] MEDS: LINACLOTIDE 145 MCG CAPSULE PO SCH (09:35)
[2017-06-10] MEDS: DILTIAZEM CD 180 MG CAPSULE PO SCH (09:36)
[2017-06-10] MEDS: CALCIUM (CARBONATE)/VITAMIN D 600 MG-400 UNIT TABLET PO SCH (09:36)
[2017-06-10] MEDS: POLYETHYLENE GLYCOL POWDER 17 GM PACK PO SCH (09:36)
[2017-06-10] MEDS: ALLOPURINOL 300 MG TABLET PO SCH (09:36)
[2017-06-10] MEDS: ACETAMINOPHEN 325 MG TABLET PO SCH (09:37)
[2017-06-10] MEDS: CARVEDILOL 12.5 MG TABLET PO SCH (09:37)
[2017-06-10] MEDS: FERROUS SULFATE 325 MG TABLET PO SCH (09:37)
[2017-06-10] MEDS: MULTIVITAMIN (CENTRUM) TABLET PO SCH (09:37)
[2017-06-10] MEDS: PANTOPRAZOLE 40 MG TABLET PO SCH (09:37)
[2017-06-10] MEDS: tiZANidine 4 MG TABLET PO SCH (09:38)
[2017-06-10 10:58] VITALS: BP 124/69
[2017-06-10] MEDS: MENTHOL/ZINC OXIDE OINT 71 GM JAR TOP SCH (11:26)
[2017-06-10] MEDS: ENOXAPARIN 40 MG/0.4 ML SYRINGE SUBCUT SCH (11:49)
== END 2017-06-10 12:40 | DRG 193 ==
LOC: EDUNIT# → EDSEX → EDBD → N.ED 11:49 → SUPCPDRO 14:12 → N.EDINP 14:12 → SUATTDRO 14:12 → N.2E 17:20 → N.CC 19:19 → N.3E 06-06 11:53
PROVIDERS: ADMIT Internal Medicine Cardiovascular Disease; ATTEND Internal Medicine

== ENCOUNTER 2017-11-19 11:49 | Observation (INO) ==
[2017-11-19 13:03] LABS: Basophils % 0.3 % (0.0-0.8); Eosinophils # 0.2 10*3/uL (0.0-0.87); Eosinophils % 1.6 % (0.00-10.9); Hematocrit 43.3 VOL% (42.0-52.0); Immature Granulocytes Absolute 0.12 #; Lymphocytes # 1.8 10*3/uL (1.4-4.0); Lymphocytes % 15.3 % (21.2-54.2); Mean Corpuscular HGB Conc 32.3 GM/DL (32-36); Mean Corpuscular Hemoglobin 27 PG (27-34); Mean Corpuscular Volume 83.1 FL (87-102); Monocytes # 1.2 10*3/uL (0.11-0.8); Neutrophils # 8.3 10*3/uL (1.4-7.4); Neutrophils % 71.8 % (38.7-73.9); Platelet Count 216 T/CUMM (130-400); Red Blood Count 5.21 MC/CUMM (3.8-5.5); Red Cell Distribution Width 14.4 % (9.3-17.3); White Blood Count 11.6 T/CUMM (4-12)
[2017-11-19] MEDS ORDERED: SODIUM CHLORIDE 0.9% 1,000 ML IV STA (13:41)
[2017-11-19] MEDS ORDERED: ONDANSETRON 4 MG/2 ML VIAL IV STA (13:41)
[2017-11-19 13:45] LABS: Albumin 3.5 G/DL (3.4-5.0); Bilirubin,Total 0.9 MG/DL (0.2-1.0); Osmolality,Calculated 273.4 MOS/KG (273-304); Potassium 2.9 MMOL/L (3.5-5.1)
[2017-11-19] MEDS ORDERED: ONDANSETRON 4 MG/2 ML VIAL ONE (13:54)
[2017-11-19 16:19] LABS: Apearance,Urine CLOUDY (Clear); Bacteria,Urine Many /HPF (Few); Bilirubin,Urine Negative (Negative); Blood, Urine Large mg/dL (Negative); Glucose,Urine (UA) Negative (Negative); Ketones,Urine Negative (Negative); Mucus,Urine Occasional /LPF (Occasional); Nitrite,Urine Negative (Negative); Protein,Urine 100 MG/DL; RBC,Urine 403 /HPF (0-4); Urine Color Yellow (Yellow); Urine Urobilinogen < 2.0 EU/DL (0.2-1.0); WBC,Urine 428 /HPF (0-6)
[2017-11-19] MEDS ORDERED: POTASSIUM CHLORIDE 20 MEQ TABLET PO PRN (18:46)
[2017-11-19] MEDS ORDERED: BISACODYL 5 MG TABLET PO PRN (18:46)
[2017-11-19] MEDS ORDERED: PROMETHAZINE 25 MG/1 ML VIAL IM PRN (18:46)
[2017-11-19] MEDS ORDERED: DOCUSATE SODIUM 100 MG CAPSULE PO PRN (18:46)
[2017-11-19] MEDS ORDERED: ONDANSETRON 4 MG/2 ML VIAL IV PRN (18:46)
[2017-11-19] MEDS ORDERED: ACETAMINOPHEN 325 MG TABLET PO PRN (18:46)
[2017-11-19] MEDS ORDERED: ALBUTEROL 2.5 MG/3 ML NEB RESP TX PRN (19:14)
[2017-11-19] MEDS ORDERED: BISACODYL 10 MG SUPP RECTAL PRN (19:14)
[2017-11-19] MEDS ORDERED: traZODone 50 MG TABLET PO SCH (21:00)
[2017-11-19] MEDS ORDERED: ENOXAPARIN 40 MG/0.4 ML SYRINGE SUBCUT SCH (21:00)
[2017-11-19] MEDS ORDERED: METOCLOPRAMIDE 10 MG/2 ML VIAL IV ONE (21:00)
[2017-11-19] MEDS ORDERED: cefTRIAXone 1,000 MG in SYRINGE 1 EACH IV SCH (21:00)
[2017-11-19] MEDS: ACETAMINOPHEN 325 MG TABLET PO SCH (22:05)
[2017-11-19] MEDS: POTASSIUM CHLORIDE 20 MEQ TABLET PO SCH (22:07)
[2017-11-19] MEDS: tiZANidine 4 MG TABLET PO SCH (22:08)
[2017-11-19] MEDS: CARVEDILOL 12.5 MG TABLET PO SCH (22:08)
[2017-11-19] MEDS: acetaZOLAMIDE 250 MG TABLET PO SCH (22:08)
[2017-11-19] MEDS: SODIUM CHLOR 0.9% KCL 20 MEQ 20 MEQ/1,000 ML BAG IV SCH (22:10)
[2017-11-20] MEDS: POTASSIUM CHLORIDE 20 MEQ TABLET PO SCH ×2 (02:01→04:20)
[2017-11-20] MEDS ORDERED: METOCLOPRAMIDE 10 MG/2 ML VIAL IV ONE (02:30)
[2017-11-20 04:20] LABS: Basophils # 0.1 10*3/uL (0.0-0.2); Basophils % 0.4 % (0.0-0.8); Eosinophils # 0.3 10*3/uL (0.0-0.87); Eosinophils % 2.4 % (0.00-10.9); Hematocrit 39.6 VOL% (42.0-52.0); Hemoglobin 12.6 GM/DL (14.0-18.0); Immature Granulocytes % 1.2 %; Immature Granulocytes Absolute 0.15 #; Lymphocytes # 2.4 10*3/uL (1.4-4.0); Lymphocytes % 19.5 % (21.2-54.2); Mean Corpuscular HGB Conc 31.8 GM/DL (32-36); Mean Corpuscular Hemoglobin 27 PG (27-34); Mean Corpuscular Volume 84.4 FL (87-102); Mean Platelet Volume 10.5 FL (9.6-12.0); Monocytes # 1.4 10*3/uL (0.11-0.8); Monocytes % 11.7 % (1.7-12.7); Neutrophils # 7.9 10*3/uL (1.4-7.4); Neutrophils % 64.8 % (38.7-73.9); Platelet Count 196 T/CUMM (130-400); Red Blood Count 4.69 MC/CUMM (3.8-5.5); Red Cell Distribution Width 14.6 % (9.3-17.3); White Blood Count 12.2 T/CUMM (4-12)
[2017-11-20 04:55] LABS: Bilirubin,Total 0.8 MG/DL (0.2-1.0); Calcium 9.2 MG/DL (8.5-10.1); Osmolality,Calculated 279.7 MOS/KG (273-304); Potassium 3.2 MMOL/L (3.5-5.1); Risk Ratio 2.6; Total Protein 7.7 G/DL (6.4-8.3); VLDL CHOLESTEROL 11.8 MG/DL
[2017-11-20] MEDS ORDERED: METOCLOPRAMIDE 10 MG TABLET PO SCH (07:30)
[2017-11-20] MEDS ORDERED: METOCLOPRAMIDE 5 MG TABLET PO SCH (07:30)
[2017-11-20 08:14] VITALS: BP 116/89
[2017-11-20] MEDS ORDERED: DILTIAZEM CD 180 MG CAPSULE PO SCH (09:00)
[2017-11-20] MEDS ORDERED: MENTHOL/ZINC OXIDE OINT 71 GM JAR TOP SCH (09:00)
[2017-11-20] MEDS ORDERED: CALCIUM (CARBONATE)/VITAMIN D 600 MG-400 UNIT TABLET PO SCH (09:00)
[2017-11-20] MEDS ORDERED: POLYETHYLENE GLYCOL POWDER 17 GM PACK PO SCH (09:00)
[2017-11-20] MEDS ORDERED: POTASSIUM CHLORIDE 20 MEQ TABLET PO ONE (09:00)
[2017-11-20] MEDS ORDERED: MULTIVITAMIN (CENTRUM) TABLET PO SCH (09:00)
[2017-11-20] MEDS ORDERED: ALLOPURINOL 300 MG TABLET PO SCH (09:00)
[2017-11-20] MEDS ORDERED: LINACLOTIDE 145 MCG CAPSULE PO SCH (09:00)
[2017-11-20] MEDS ORDERED: FERROUS SULFATE 325 MG TABLET PO SCH (09:00)
[2017-11-20] MEDS: tiZANidine 4 MG TABLET PO SCH (09:06)
[2017-11-20] MEDS: CARVEDILOL 12.5 MG TABLET PO SCH (09:07)
[2017-11-20] MEDS: ACETAMINOPHEN 325 MG TABLET PO SCH (09:07)
[2017-11-20] MEDS: acetaZOLAMIDE 250 MG TABLET PO SCH (09:07)
[2017-11-20] MEDS: SODIUM CHLOR 0.9% KCL 20 MEQ 20 MEQ/1,000 ML BAG IV SCH (09:13)
[2017-11-20] MEDS ORDERED: POTASSIUM CHLORIDE 20 MEQ TABLET PO SCH (15:00)
== END 2017-11-20 12:00 ==
LOC: EDBD → EDUNIT# → N.ED 11:49 → N.2E 11:49
PROVIDERS: ADMIT Hospitalist; ATTEND Hospitalist

== ENCOUNTER 2018-08-19 10:44 | Inpatient (IN) ==
[2018-08-19 11:40] LABS: Basophils # 0.1 10*3/uL (0.0-0.2); Basophils % 0.3 % (0.0-0.8); Hemoglobin 12.5 GM/DL (14.0-18.0); Immature Granulocytes Absolute 0.24 #; Lymphocytes # 1.2 10*3/uL (1.4-4.0); Lymphocytes % 4.8 % (21.2-54.2); Mean Corpuscular HGB Conc 30.5 GM/DL (32-36); Mean Corpuscular Volume 86.3 FL (87-102); Mean Platelet Volume 10.1 FL (9.6-12.0); Monocytes % 6.8 % (1.7-12.7); Neutrophils % 87.1 % (38.7-73.9); Platelet Count 151 T/CUMM (130-400); Red Blood Count 4.75 MC/CUMM (3.8-5.5); Red Cell Distribution Width 16.5 % (9.3-17.3); White Blood Count 25.1 T/CUMM (4-12)
[2018-08-19 11:47] LABS: Albumin 3.4 G/DL (3.4-5.0); Bilirubin,Total 0.7 MG/DL (0.2-1.0); Calcium 9.8 MG/DL (8.5-10.1); Total Protein 8.5 G/DL (6.4-8.3)
[2018-08-19 11:51] LABS: INR 1.1
[2018-08-19 12:03] LABS: Band Neutrophils 25 % (0-10); Lymphocytes 6 % (20-55); Platelet Estimate Normal; Segmented Neutrophils 67 % (50-85); Total Cells Counted 100
[2018-08-19 12:04] LABS: Anisocytosis Slight; Macrocytosis Slight; Poikilocytosis Slight
[2018-08-19 12:29] LABS: Amorphous Crystals,Urine Occasional /HPF (Few); Apearance,Urine CLOUDY (Clear); Bilirubin,Urine Negative (Negative); Blood, Urine Large mg/dL (Negative); Calcium Oxalate Crystals,Urine Many /HPF (Few); Glucose,Urine (UA) Negative (Negative); Ketones,Urine 5 mg/dL (Negative); Mucus,Urine Moderate /LPF (Occasional); Nitrite,Urine Negative (Negative); Protein,Urine 100 MG/DL; RBC,Urine 3413 /HPF (0-4); Urine Color Amber (Yellow); Urine Specific Gravity 1.017 (1.001-1.035); Urine Urobilinogen < 2.0 EU/DL (0.2-1.0); WBC,Urine 2389 /HPF (0-6)
[2018-08-19] MEDS ORDERED: PIPERACILLIN/TAZOBACTAM 3,375 MG in SODIUM CHLORIDE 0.9% 100 ML IV STA (12:53)
[2018-08-19] MEDS ORDERED: ONDANSETRON 4 MG/2 ML VIAL IV PRN (14:14)
[2018-08-19] MEDS ORDERED: ACETAMINOPHEN 325 MG TABLET PO PRN (14:14)
[2018-08-19] MEDS ORDERED: ALBUTEROL 2.5 MG/3 ML NEB RESP TX PRN (14:23)
[2018-08-19 15:36] LABS: Risk Ratio 1.98; Thyroid Stimulating Hormone 8.97 uIU/ml (0.358-3.74); VLDL CHOLESTEROL 11.2 MG/DL
[2018-08-19] MEDS: ENOXAPARIN 40 MG/0.4 ML SYRINGE SUBCUT SCH (15:42)
[2018-08-19] MEDS: SODIUM CHLORIDE 0.9% 1,000 ML IV SCH (15:42)
[2018-08-19] MEDS: LEVOFLOXACIN INJ 750 MG in PREMIX 1 EACH IV SCH (15:42)
[2018-08-19] MEDS: ALBUTEROL/IPRATROPIUM 3 ML NEB RESP TX SCH (19:33)
[2018-08-19] MEDS ORDERED: SODIUM CHLORIDE 0.9% 500 ML IV ONE (23:53)
[2018-08-20] MEDS: ALBUTEROL/IPRATROPIUM 3 ML NEB RESP TX SCH ×4 (02:14→20:10)
[2018-08-20 04:24] LABS: Basophils % 0.2 % (0.0-0.8); Eosinophils % 0.2 % (0.00-10.9); Hematocrit 35.2 VOL% (42.0-52.0); Hemoglobin 10.9 GM/DL (14.0-18.0); Immature Granulocytes % 0.7 %; Immature Granulocytes Absolute 0.12 #; Lymphocytes % 6.1 % (21.2-54.2); Mean Corpuscular Volume 85.6 FL (87-102); Monocytes % 8.5 % (1.7-12.7); Neutrophils % 84.3 % (38.7-73.9); Platelet Count 144 T/CUMM (130-400); Red Blood Count 4.11 MC/CUMM (3.8-5.5); Red Cell Distribution Width 16.4 % (9.3-17.3); White Blood Count 16.7 T/CUMM (4-12)
[2018-08-20 05:01] LABS: Calcium 9.4 MG/DL (8.5-10.1); Osmolality,Calculated 292.8 MOS/KG (273-304)
[2018-08-20] MEDS: SODIUM CHLORIDE 0.9% 1,000 ML IV SCH ×2 (05:12→15:57)
[2018-08-20] MEDS ORDERED: MAGNESIUM HYDROXIDE SUSP 30 ML UDCUP PO PRN (07:22)
[2018-08-20 07:47] LABS: Free T4 (Free Thyroxine) 1.13 NG/DL (0.76-1.46)
[2018-08-20] MEDS: POLYETHYLENE GLYCOL POWDER 17 GM PACK PO SCH (09:05)
[2018-08-20] MEDS: DILTIAZEM CD 180 MG CAPSULE PO SCH (09:05)
[2018-08-20] MEDS: tiZANidine 4 MG TABLET PO SCH ×2 (09:06→22:18)
[2018-08-20] MEDS: MULTIVITAMIN (CENTRUM) TABLET PO SCH (09:06)
[2018-08-20] MEDS: POTASSIUM CHLORIDE 20 MEQ TABLET PO PRN (09:06)
[2018-08-20] MEDS: traZODone 50 MG TABLET PO SCH (09:06)
[2018-08-20] MEDS: CALCIUM (CARBONATE)/VITAMIN D 600 MG-400 UNIT TABLET PO SCH (09:06)
[2018-08-20] MEDS: METOCLOPRAMIDE 10 MG TABLET PO SCH ×3 (09:06→15:58)
[2018-08-20] MEDS: ALLOPURINOL 300 MG TABLET PO SCH (09:06)
[2018-08-20] MEDS: FERROUS SULFATE 325 MG TABLET PO SCH ×2 (09:07→22:18)
[2018-08-20] MEDS: PANTOPRAZOLE 40 MG TABLET PO SCH (09:07)
[2018-08-20] MEDS: CARVEDILOL 3.125 MG TABLET PO SCH ×2 (09:07→22:18)
[2018-08-20] MEDS: DOCUSATE SODIUM 100 MG CAPSULE PO PRN (09:07)
[2018-08-20] MEDS: acetaZOLAMIDE 250 MG TABLET PO SCH ×2 (09:07→22:18)
[2018-08-20] MEDS: LINACLOTIDE 145 MCG CAPSULE PO SCH (09:09)
[2018-08-20] MEDS: POTASSIUM CHLORIDE 20 MEQ TABLET PO SCH ×2 (12:27→16:03)
[2018-08-20] MEDS: LEVOFLOXACIN INJ 750 MG in PREMIX 1 EACH IV SCH (15:56)
[2018-08-20] MEDS: ENOXAPARIN 40 MG/0.4 ML SYRINGE SUBCUT SCH (15:58)
[2018-08-21] MEDS: ALBUTEROL/IPRATROPIUM 3 ML NEB RESP TX SCH ×4 (02:20→19:35)
[2018-08-21 05:30] LABS: Basophils % 0.3 % (0.0-0.8); Eosinophils # 0.1 10*3/uL (0.0-0.87); Eosinophils % 0.9 % (0.00-10.9); Hemoglobin 10.6 GM/DL (14.0-18.0); Immature Granulocytes % 0.6 %; Immature Granulocytes Absolute 0.08 #; Lymphocytes % 8.3 % (21.2-54.2); Mean Corpuscular HGB Conc 30.3 GM/DL (32-36); Mean Corpuscular Volume 86.4 FL (87-102); Monocytes % 8.4 % (1.7-12.7); Neutrophils % 81.5 % (38.7-73.9); Platelet Count 148 T/CUMM (130-400); Red Blood Count 4.05 MC/CUMM (3.8-5.5); Red Cell Distribution Width 16.4 % (9.3-17.3); White Blood Count 12.6 T/CUMM (4-12)
[2018-08-21 05:48] LABS: Calcium 9.6 MG/DL (8.5-10.1); Osmolality,Calculated 285.1 MOS/KG (273-304)
[2018-08-21] MEDS: METOCLOPRAMIDE 10 MG TABLET PO SCH ×3 (10:29→16:44)
[2018-08-21] MEDS: ALLOPURINOL 300 MG TABLET PO SCH (10:30)
[2018-08-21] MEDS: CALCIUM (CARBONATE)/VITAMIN D 600 MG-400 UNIT TABLET PO SCH (10:30)
[2018-08-21] MEDS: DILTIAZEM CD 180 MG CAPSULE PO SCH (10:30)
[2018-08-21] MEDS: FERROUS SULFATE 325 MG TABLET PO SCH ×2 (10:30→21:12)
[2018-08-21] MEDS: acetaZOLAMIDE 250 MG TABLET PO SCH ×2 (10:30→21:12)
[2018-08-21] MEDS: tiZANidine 4 MG TABLET PO SCH ×2 (10:31→21:12)
[2018-08-21] MEDS: MULTIVITAMIN (CENTRUM) TABLET PO SCH (10:31)
[2018-08-21] MEDS: PANTOPRAZOLE 40 MG TABLET PO SCH (10:31)
[2018-08-21] MEDS: CARVEDILOL 3.125 MG TABLET PO SCH ×2 (10:33→21:11)
[2018-08-21] MEDS: LINACLOTIDE 145 MCG CAPSULE PO SCH (10:33)
[2018-08-21] MEDS: SODIUM CHLORIDE 0.9% 1,000 ML IV SCH (11:57)
[2018-08-21] MEDS: POTASSIUM CHLORIDE 20 MEQ TABLET PO SCH ×2 (12:05→16:44)
[2018-08-21] MEDS: POLYETHYLENE GLYCOL POWDER 17 GM PACK PO SCH (13:44)
[2018-08-21] MEDS: LEVOFLOXACIN INJ 750 MG in PREMIX 1 EACH IV SCH (15:22)
[2018-08-21] MEDS: ENOXAPARIN 40 MG/0.4 ML SYRINGE SUBCUT SCH (15:22)
[2018-08-22] MEDS: ALBUTEROL/IPRATROPIUM 3 ML NEB RESP TX SCH ×4 (00:59→19:29)
[2018-08-22] MEDS: SODIUM CHLORIDE 0.9% 1,000 ML IV SCH (02:42)
[2018-08-22 03:10] LABS: Basophils % 0.3 % (0.0-0.8); Eosinophils # 0.2 10*3/uL (0.0-0.87); Eosinophils % 1.8 % (0.00-10.9); Hemoglobin 10.6 GM/DL (14.0-18.0); Immature Granulocytes Absolute 0.09 #; Lymphocytes # 1.2 10*3/uL (1.4-4.0); Lymphocytes % 12.9 % (21.2-54.2); Mean Corpuscular HGB Conc 30.3 GM/DL (32-36); Mean Corpuscular Volume 85.6 FL (87-102); Mean Platelet Volume 10.1 FL (9.6-12.0); Monocytes % 10.2 % (1.7-12.7); Neutrophils % 73.8 % (38.7-73.9); Platelet Count 152 T/CUMM (130-400); Red Blood Count 4.09 MC/CUMM (3.8-5.5); Red Cell Distribution Width 16.3 % (9.3-17.3); White Blood Count 8.9 T/CUMM (4-12)
[2018-08-22 03:35] LABS: Calcium 9.2 MG/DL (8.5-10.1)
[2018-08-22] MEDS: PIPERACILLIN/TAZOBACTAM 3,375 MG in SODIUM CHLORIDE 0.9% 100 ML IV SCH ×2 (09:22→17:04)
[2018-08-22] MEDS: POLYETHYLENE GLYCOL POWDER 17 GM PACK PO SCH (09:23)
[2018-08-22] MEDS: acetaZOLAMIDE 250 MG TABLET PO SCH ×2 (09:24→21:35)
[2018-08-22] MEDS: DILTIAZEM CD 180 MG CAPSULE PO SCH (09:24)
[2018-08-22] MEDS: CALCIUM (CARBONATE)/VITAMIN D 600 MG-400 UNIT TABLET PO SCH (09:25)
[2018-08-22] MEDS: traZODone 50 MG TABLET PO SCH (09:25)
[2018-08-22] MEDS: PANTOPRAZOLE 40 MG TABLET PO SCH (09:25)
[2018-08-22] MEDS: METOCLOPRAMIDE 10 MG TABLET PO SCH ×3 (09:25→17:04)
[2018-08-22] MEDS: MULTIVITAMIN (CENTRUM) TABLET PO SCH (09:25)
[2018-08-22] MEDS: tiZANidine 4 MG TABLET PO SCH ×2 (09:25→21:35)
[2018-08-22] MEDS: POTASSIUM CHLORIDE 20 MEQ TABLET PO PRN (09:25)
[2018-08-22] MEDS: CARVEDILOL 3.125 MG TABLET PO SCH ×2 (09:25→21:35)
[2018-08-22] MEDS: ALLOPURINOL 300 MG TABLET PO SCH (09:25)
[2018-08-22] MEDS: FERROUS SULFATE 325 MG TABLET PO SCH ×2 (09:25→21:35)
[2018-08-22] MEDS: LINACLOTIDE 145 MCG CAPSULE PO SCH (09:30)
[2018-08-22] MEDS: POTASSIUM CHLORIDE 20 MEQ TABLET PO SCH ×2 (11:20→17:04)
[2018-08-22] MEDS: LEVOFLOXACIN INJ 750 MG in PREMIX 1 EACH IV SCH (15:12)
[2018-08-22] MEDS: ENOXAPARIN 40 MG/0.4 ML SYRINGE SUBCUT SCH (15:12)
[2018-08-23] MEDS: ALBUTEROL/IPRATROPIUM 3 ML NEB RESP TX SCH ×4 (00:53→19:26)
[2018-08-23] MEDS: PIPERACILLIN/TAZOBACTAM 3,375 MG in SODIUM CHLORIDE 0.9% 100 ML IV SCH ×3 (01:50→17:15)
[2018-08-23] MEDS: acetaZOLAMIDE 250 MG TABLET PO SCH ×2 (08:20→21:28)
[2018-08-23] MEDS: FERROUS SULFATE 325 MG TABLET PO SCH ×2 (08:21→21:28)
[2018-08-23] MEDS: METOCLOPRAMIDE 10 MG TABLET PO SCH ×3 (08:21→17:14)
[2018-08-23] MEDS: MULTIVITAMIN (CENTRUM) TABLET PO SCH (08:21)
[2018-08-23] MEDS: DILTIAZEM CD 180 MG CAPSULE PO SCH (08:21)
[2018-08-23] MEDS: DOCUSATE SODIUM 100 MG CAPSULE PO PRN (08:21)
[2018-08-23] MEDS: CARVEDILOL 3.125 MG TABLET PO SCH ×2 (08:21→21:28)
[2018-08-23] MEDS: LINACLOTIDE 145 MCG CAPSULE PO SCH (08:21)
[2018-08-23] MEDS: ALLOPURINOL 300 MG TABLET PO SCH (08:21)
[2018-08-23] MEDS: POLYETHYLENE GLYCOL POWDER 17 GM PACK PO SCH (08:22)
[2018-08-23] MEDS: CALCIUM (CARBONATE)/VITAMIN D 600 MG-400 UNIT TABLET PO SCH (08:24)
[2018-08-23] MEDS: traZODone 50 MG TABLET PO SCH (08:25)
[2018-08-23] MEDS: PANTOPRAZOLE 40 MG TABLET PO SCH (08:26)
[2018-08-23] MEDS: tiZANidine 4 MG TABLET PO SCH ×2 (09:00→21:29)
[2018-08-23] MEDS: POTASSIUM CHLORIDE 20 MEQ TABLET PO SCH ×2 (12:49→17:15)
[2018-08-23] MEDS: ENOXAPARIN 40 MG/0.4 ML SYRINGE SUBCUT SCH (14:06)
[2018-08-23] MEDS: LEVOFLOXACIN INJ 750 MG in PREMIX 1 EACH IV SCH (14:06)
[2018-08-24] MEDS: ALBUTEROL/IPRATROPIUM 3 ML NEB RESP TX SCH ×3 (00:50→12:05)
[2018-08-24] MEDS: PIPERACILLIN/TAZOBACTAM 3,375 MG in SODIUM CHLORIDE 0.9% 100 ML IV SCH ×2 (01:07→08:38)
[2018-08-24 04:42] LABS: Basophils # 0.1 10*3/uL (0.0-0.2); Basophils % 0.8 % (0.0-0.8); Eosinophils # 0.2 10*3/uL (0.0-0.87); Eosinophils % 2.7 % (0.00-10.9); Hematocrit 35.1 VOL% (42.0-52.0); Hemoglobin 10.9 GM/DL (14.0-18.0); Immature Granulocytes % 4.1 %; Immature Granulocytes Absolute 0.32 #; Lymphocytes # 1.4 10*3/uL (1.4-4.0); Lymphocytes % 18.4 % (21.2-54.2); Mean Corpuscular HGB Conc 31.1 GM/DL (32-36); Mean Corpuscular Volume 84.4 FL (87-102); Mean Platelet Volume 9.8 FL (9.6-12.0); Monocytes % 9.8 % (1.7-12.7); Neutrophils % 64.2 % (38.7-73.9); Platelet Count 171 T/CUMM (130-400); Red Blood Count 4.16 MC/CUMM (3.8-5.5); Red Cell Distribution Width 16.1 % (9.3-17.3); White Blood Count 7.8 T/CUMM (4-12)
[2018-08-24 05:08] LABS: Albumin 2.8 G/DL (3.4-5.0); Bilirubin,Total 0.7 MG/DL (0.2-1.0); Calcium 9.4 MG/DL (8.5-10.1); Total Protein 7.4 G/DL (6.4-8.3)
[2018-08-24] MEDS: POTASSIUM CHLORIDE 20 MEQ TABLET PO PRN ×2 (08:37→10:35)
[2018-08-24] MEDS: CALCIUM (CARBONATE)/VITAMIN D 600 MG-400 UNIT TABLET PO SCH (08:37)
[2018-08-24] MEDS: MULTIVITAMIN (CENTRUM) TABLET PO SCH (08:37)
[2018-08-24] MEDS: METOCLOPRAMIDE 10 MG TABLET PO SCH ×2 (08:38→10:35)
[2018-08-24] MEDS: DILTIAZEM CD 180 MG CAPSULE PO SCH (08:38)
[2018-08-24] MEDS: tiZANidine 4 MG TABLET PO SCH (08:38)
[2018-08-24] MEDS: CARVEDILOL 3.125 MG TABLET PO SCH (08:38)
[2018-08-24] MEDS: acetaZOLAMIDE 250 MG TABLET PO SCH (08:38)
[2018-08-24] MEDS: POLYETHYLENE GLYCOL POWDER 17 GM PACK PO SCH (08:38)
[2018-08-24] MEDS: FERROUS SULFATE 325 MG TABLET PO SCH (08:38)
[2018-08-24] MEDS: PANTOPRAZOLE 40 MG TABLET PO SCH (08:38)
[2018-08-24] MEDS: traZODone 50 MG TABLET PO SCH (08:38)
[2018-08-24] MEDS: ALLOPURINOL 300 MG TABLET PO SCH (08:38)
[2018-08-24] MEDS: LINACLOTIDE 145 MCG CAPSULE PO SCH (08:39)
[2018-08-24] MEDS ORDERED: ERTAPENEM 1,000 MG in SODIUM CHLORIDE 0.9% 100 ML IV SCH (10:00)
[2018-08-24] MEDS: POTASSIUM CHLORIDE 20 MEQ TABLET PO SCH ×2 (10:35→11:07)
[2018-08-24 13:11] VITALS: BP 115/72
== END 2018-08-24 14:06 | DRG 689 ==
LOC: EDBD → EDUNIT# → N.ED 10:44 → N.EDINP 14:14 → N.5E 14:40

== ENCOUNTER 2018-09-24 00:47 | Inpatient (IN) ==
[2018-09-24] MEDS ORDERED: methylPREDNISolone SOD SUC 125 MG/2 ML VIAL IV STA (00:59)
[2018-09-24] MEDS ORDERED: ONDANSETRON 4 MG/2 ML VIAL IV STA (00:59)
[2018-09-24] MEDS ORDERED: FUROSEMIDE 100 MG/10 ML VIAL IV STA (00:59)
[2018-09-24] MEDS ORDERED: ALBUTEROL/IPRATROPIUM 3 ML NEB RESP TX STA (00:59)
[2018-09-24 01:34] LABS: Basophils # 0.1 10*3/uL (0.0-0.2); Basophils % 0.3 % (0.0-0.8); Eosinophils % 0.1 % (0.00-10.9); Hematocrit 33.3 VOL% (42.0-52.0); Hemoglobin 10.3 GM/DL (14.0-18.0); Immature Granulocytes % 1.1 %; Immature Granulocytes Absolute 0.24 #; Lymphocytes % 4.9 % (21.2-54.2); Mean Corpuscular HGB Conc 30.9 GM/DL (32-36); Mean Corpuscular Volume 83.3 FL (87-102); Mean Platelet Volume 10.4 FL (9.6-12.0); Monocytes % 6.5 % (1.7-12.7); Neutrophils % 87.1 % (38.7-73.9); Platelet Count 172 T/CUMM (130-400); Red Cell Distribution Width 15.8 % (9.3-17.3); White Blood Count 20.9 T/CUMM (4-12)
[2018-09-24 01:44] LABS: INR 1.1; PT Patient Result 11.7 SECS
[2018-09-24 01:53] LABS: Albumin 2.7 G/DL (3.4-5.0); Bilirubin,Total 0.9 MG/DL (0.2-1.0); Calcium 8.9 MG/DL (8.5-10.1); Osmolality,Calculated 291.7 MOS/KG (273-304); Total Protein 7.2 G/DL (6.4-8.3)
[2018-09-24 01:58] LABS: Band Neutrophils 4 % (0-10); Lymphocytes 6 % (20-55); Segmented Neutrophils 85 % (50-85); Total Cells Counted 100
[2018-09-24 01:59] LABS: Hypochromasia 1+; Platelet Estimate Normal
[2018-09-24] MEDS ORDERED: MAGNESIUM SULF RIDER 2 GM in PREMIX 1 EACH IV STA (02:02)
[2018-09-24] MEDS ORDERED: ENOXAPARIN 100 MG/ML SYRINGE SUBCUT STA ×2 (02:03→02:06)
[2018-09-24] MEDS ORDERED: cefTRIAXone 1,000 MG in SODIUM CHLORIDE 0.9% 100 ML IV STA (02:03)
[2018-09-24] MEDS ORDERED: ENOXAPARIN 120 MG/0.8 ML SYRINGE SUBCUT STA (02:06)
[2018-09-24] MEDS ORDERED: diphenhydrAMINE CAP 25 MG CAPSULE PO PRN (02:49)
[2018-09-24] MEDS ORDERED: ONDANSETRON 4 MG/2 ML VIAL IV PRN (02:49)
[2018-09-24] MEDS ORDERED: guaiFENesin/DM ER 600-30 MG TABLET PO PRN (02:49)
[2018-09-24] MEDS ORDERED: ACETAMINOPHEN 325 MG TABLET PO PRN (02:49)
[2018-09-24 03:51] LABS: ABG Base Excess -5.4 MMOL/L (-2.5-2.5); ABG HCO3 19.9 MMOL/L (20-26); ABG Oxygen Saturation 96.6 % (95-100); ABG PCO2 31.8 MM HG (35-48); ABG PH 7.379 (7.35-7.45); Allen Test Positive
[2018-09-24] MEDS: PIPERACILLIN/TAZOBACTAM 3,375 MG in SODIUM CHLORIDE 0.9% 100 ML IV SCH ×3 (05:43→22:28)
[2018-09-24] MEDS ORDERED: POTASSIUM CHLORIDE 20 MEQ TABLET PO ONE ×2 (06:29→12:30)
[2018-09-24] MEDS ORDERED: MAGNESIUM HYDROXIDE SUSP 30 ML UDCUP PO PRN (06:37)
[2018-09-24] MEDS ORDERED: ONDANSETRON 4 MG TABLET PO PRN (06:37)
[2018-09-24] MEDS: ALBUTEROL/IPRATROPIUM 3 ML NEB RESP TX SCH ×3 (07:54→18:51)
[2018-09-24] MEDS: MULTIVITAMIN (CENTRUM) TABLET PO SCH (08:46)
[2018-09-24] MEDS: PANTOPRAZOLE 40 MG TABLET PO SCH (08:46)
[2018-09-24] MEDS: CALCIUM (CARBONATE)/VITAMIN D 600 MG-400 UNIT TABLET PO SCH (08:46)
[2018-09-24] MEDS: acetaZOLAMIDE 250 MG TABLET PO SCH ×2 (08:46→22:27)
[2018-09-24] MEDS: METOCLOPRAMIDE 10 MG TABLET PO SCH ×3 (08:47→17:31)
[2018-09-24] MEDS: CARVEDILOL 3.125 MG TABLET PO SCH ×2 (08:47→22:28)
[2018-09-24] MEDS: FERROUS SULFATE 325 MG TABLET PO SCH ×2 (08:47→22:28)
[2018-09-24] MEDS: DILTIAZEM CD 120 MG CAPSULE PO SCH (08:47)
[2018-09-24] MEDS: tiZANidine 4 MG TABLET PO SCH ×2 (08:47→22:28)
[2018-09-24] MEDS: POLYETHYLENE GLYCOL POWDER 17 GM PACK PO SCH (08:50)
[2018-09-24] MEDS: LINACLOTIDE 145 MCG CAPSULE PO SCH (08:55)
[2018-09-24] MEDS: DILTIAZEM CD 240 MG CAPSULE PO SCH (08:55)
[2018-09-24] MEDS: POTASSIUM CHLORIDE 20 MEQ TABLET PO SCH (08:55)
[2018-09-24] MEDS ORDERED: ALLOPURINOL 300 MG TABLET PO SCH (09:00)
[2018-09-24] MEDS: AZITHROMYCIN INJ 500 MG in SODIUM CHLORIDE 0.9% 250 ML IV SCH (09:00)
[2018-09-24] MEDS ORDERED: VANCOMYCIN INJ 2,500 MG in SODIUM CHLORIDE 0.9% 500 ML IV ONE (09:00)
[2018-09-24] MEDS: methylPREDNISolone SOD SUC 125 MG/2 ML VIAL IV SCH ×2 (10:48→17:32)
[2018-09-24] MEDS ORDERED: MAGNESIUM SULF RIDER 2 GM in PREMIX 1 EACH IV ONE (12:30)
[2018-09-24] MEDS: traZODone 50 MG TABLET PO SCH (22:28)
[2018-09-25] MEDS: ALBUTEROL/IPRATROPIUM 3 ML NEB RESP TX SCH ×4 (01:18→19:47)
[2018-09-25] MEDS: methylPREDNISolone SOD SUC 125 MG/2 ML VIAL IV SCH ×3 (04:49→21:58)
[2018-09-25] MEDS: PIPERACILLIN/TAZOBACTAM 3,375 MG in SODIUM CHLORIDE 0.9% 100 ML IV SCH ×3 (04:51→21:55)
[2018-09-25] MEDS: DILTIAZEM CD 120 MG CAPSULE PO SCH (08:14)
[2018-09-25] MEDS: METOCLOPRAMIDE 10 MG TABLET PO SCH ×3 (08:14→16:42)
[2018-09-25] MEDS: MULTIVITAMIN (CENTRUM) TABLET PO SCH (08:14)
[2018-09-25] MEDS: acetaZOLAMIDE 250 MG TABLET PO SCH ×2 (08:14→21:57)
[2018-09-25] MEDS: POTASSIUM CHLORIDE 20 MEQ TABLET PO SCH (08:14)
[2018-09-25] MEDS: CALCIUM (CARBONATE)/VITAMIN D 600 MG-400 UNIT TABLET PO SCH (08:14)
[2018-09-25] MEDS: CARVEDILOL 3.125 MG TABLET PO SCH ×2 (08:14→21:57)
[2018-09-25] MEDS: DILTIAZEM CD 240 MG CAPSULE PO SCH (08:14)
[2018-09-25] MEDS: PANTOPRAZOLE 40 MG TABLET PO SCH (08:14)
[2018-09-25] MEDS: FERROUS SULFATE 325 MG TABLET PO SCH ×2 (08:14→21:58)
[2018-09-25] MEDS: LINACLOTIDE 145 MCG CAPSULE PO SCH (08:15)
[2018-09-25] MEDS: tiZANidine 4 MG TABLET PO SCH ×2 (08:15→21:57)
[2018-09-25] MEDS: ENOXAPARIN 40 MG/0.4 ML SYRINGE SUBCUT SCH (08:15)
[2018-09-25] MEDS: POLYETHYLENE GLYCOL POWDER 17 GM PACK PO SCH (08:15)
[2018-09-25] MEDS: AZITHROMYCIN INJ 500 MG in SODIUM CHLORIDE 0.9% 250 ML IV SCH (08:40)
[2018-09-25 08:56] LABS: Basophils % 0.2 % (0.0-0.8); Hematocrit 34.7 VOL% (42.0-52.0); Hemoglobin 10.7 GM/DL (14.0-18.0); Immature Granulocytes % 2.2 %; Immature Granulocytes Absolute 0.51 #; Lymphocytes # 1.1 10*3/uL (1.4-4.0); Lymphocytes % 4.9 % (21.2-54.2); Mean Corpuscular HGB Conc 30.8 GM/DL (32-36); Mean Corpuscular Volume 83.2 FL (87-102); Mean Platelet Volume 11.2 FL (9.6-12.0); Monocytes % 2.2 % (1.7-12.7); Neutrophils % 90.5 % (38.7-73.9); Platelet Count 231 T/CUMM (130-400); Red Blood Count 4.17 MC/CUMM (3.8-5.5); Red Cell Distribution Width 16.1 % (9.3-17.3); White Blood Count 23.3 T/CUMM (4-12)
[2018-09-25 09:27] LABS: Band Neutrophils 5 % (0-10); Lymphocytes 5 % (20-55); Segmented Neutrophils 88 % (50-85); Total Cells Counted 100
[2018-09-25 09:28] LABS: Calcium 9.7 MG/DL (8.5-10.1); Hypochromasia 1+; Microcytosis 1+; Osmolality,Calculated 293.8 MOS/KG (273-304)
[2018-09-25 09:29] LABS: Platelet Estimate Normal
[2018-09-25] MEDS: VANCOMYCIN INJ 2,000 MG in SODIUM CHLORIDE 0.9% 500 ML IV SCH (09:47)
[2018-09-25] MEDS: SODIUM CHLORIDE 0.9% 1,000 ML IV SCH (09:47)
[2018-09-25] MEDS: POTASSIUM CHLORIDE 20 MEQ TABLET PO PRN ×3 (10:15→16:41)
[2018-09-25 13:05] LABS: Apearance,Urine Slightly Hazy (Clear); Bilirubin,Urine Negative (Negative); Blood, Urine Large mg/dL (Negative); Glucose,Urine (UA) Negative (Negative); Ketones,Urine Negative (Negative); Mucus,Urine Occasional /LPF (Occasional); Nitrite,Urine Negative (Negative); Protein,Urine 30 MG/DL; RBC,Urine 462 /HPF (0-4); Urine Color Yellow (Yellow); Urine Specific Gravity 1.016 (1.001-1.035); Urine Urobilinogen < 2.0 EU/DL (0.2-1.0); WBC,Urine 164 /HPF (0-6)
[2018-09-25 17:22] LABS: Basophils # 0.1 10*3/uL (0.0-0.2); Basophils % 0.2 % (0.0-0.8); Hemoglobin 10.9 GM/DL (14.0-18.0); Immature Granulocytes % 1.7 %; Immature Granulocytes Absolute 0.43 #; Lymphocytes # 1.1 10*3/uL (1.4-4.0); Lymphocytes % 4.2 % (21.2-54.2); Mean Corpuscular HGB Conc 31.1 GM/DL (32-36); Mean Corpuscular Volume 82.4 FL (87-102); Mean Platelet Volume 9.8 FL (9.6-12.0); Monocytes % 2.9 % (1.7-12.7); Platelet Count 240 T/CUMM (130-400); Red Blood Count 4.25 MC/CUMM (3.8-5.5); White Blood Count 25.7 T/CUMM (4-12)
[2018-09-25 17:44] LABS: Anisocytosis 2+; Band Neutrophils 1 % (0-10); Burr Cells 1+; Lymphocytes 5 % (20-55); Macrocytosis 1+; Microcytosis 2+; Nucleated Red Blood Cells 2 (0-5); Platelet Estimate Normal; Poikilocytosis 1+; Polychromasia 1+; Segmented Neutrophils 91 % (50-85); Total Cells Counted 100
[2018-09-26] MEDS: ALBUTEROL/IPRATROPIUM 3 ML NEB RESP TX SCH ×4 (00:25→20:00)
[2018-09-26] MEDS: PIPERACILLIN/TAZOBACTAM 3,375 MG in SODIUM CHLORIDE 0.9% 100 ML IV SCH ×3 (04:21→20:18)
[2018-09-26] MEDS: POTASSIUM CHLORIDE 20 MEQ TABLET PO PRN ×2 (04:21→06:15)
[2018-09-26 06:38] LABS: Basophils % 0.1 % (0.0-0.8); Hematocrit 33.7 VOL% (42.0-52.0); Hemoglobin 10.7 GM/DL (14.0-18.0); Immature Granulocytes % 1.8 %; Immature Granulocytes Absolute 0.35 #; Lymphocytes # 0.8 10*3/uL (1.4-4.0); Lymphocytes % 4.1 % (21.2-54.2); Mean Corpuscular HGB Conc 31.8 GM/DL (32-36); Mean Platelet Volume 10.8 FL (9.6-12.0); Monocytes % 1.6 % (1.7-12.7); NRBC # 0.02 10*3/uL; Neutrophils % 92.4 % (38.7-73.9); Platelet Count 246 T/CUMM (130-400); Red Blood Count 4.11 MC/CUMM (3.8-5.5); Red Cell Distribution Width 16.2 % (9.3-17.3); White Blood Count 19.3 T/CUMM (4-12)
[2018-09-26 06:50] LABS: Calcium 9.3 MG/DL (8.5-10.1); Osmolality,Calculated 295.7 MOS/KG (273-304)
[2018-09-26 06:59] LABS: Band Neutrophils 1 % (0-10); Hypochromasia Slight; Lymphocytes 3 % (20-55); Platelet Estimate Normal; Segmented Neutrophils 96 % (50-85); Total Cells Counted 100
[2018-09-26] MEDS ORDERED: POTASSIUM CHLORIDE 20 MEQ TABLET PO ONE (08:40)
[2018-09-26] MEDS ORDERED: MAGNESIUM SULF RIDER 2 GM in PREMIX 1 EACH IV ONE (08:40)
[2018-09-26] MEDS: AZITHROMYCIN INJ 500 MG in SODIUM CHLORIDE 0.9% 250 ML IV SCH (08:49)
[2018-09-26] MEDS: ENOXAPARIN 40 MG/0.4 ML SYRINGE SUBCUT SCH (08:50)
[2018-09-26] MEDS: LINACLOTIDE 145 MCG CAPSULE PO SCH (08:51)
[2018-09-26] MEDS: METOCLOPRAMIDE 10 MG TABLET PO SCH ×3 (08:51→17:11)
[2018-09-26] MEDS: CALCIUM (CARBONATE)/VITAMIN D 600 MG-400 UNIT TABLET PO SCH (08:51)
[2018-09-26] MEDS: FERROUS SULFATE 325 MG TABLET PO SCH ×2 (08:52→20:19)
[2018-09-26] MEDS: tiZANidine 4 MG TABLET PO SCH ×2 (08:52→20:19)
[2018-09-26] MEDS: PANTOPRAZOLE 40 MG TABLET PO SCH (08:52)
[2018-09-26] MEDS: MULTIVITAMIN (CENTRUM) TABLET PO SCH (08:52)
[2018-09-26] MEDS: POLYETHYLENE GLYCOL POWDER 17 GM PACK PO SCH (08:53)
[2018-09-26] MEDS: POTASSIUM CHLORIDE 20 MEQ TABLET PO SCH (09:07)
[2018-09-26] MEDS: acetaZOLAMIDE 250 MG TABLET PO SCH ×2 (09:07→20:19)
[2018-09-26] MEDS: VANCOMYCIN INJ 2,000 MG in SODIUM CHLORIDE 0.9% 500 ML IV SCH (12:27)
[2018-09-26] MEDS: methylPREDNISolone SOD SUC 125 MG/2 ML VIAL IV SCH (12:27)
[2018-09-26] MEDS: SODIUM CHLORIDE 0.9% 1,000 ML IV SCH ×2 (20:17→20:18)
[2018-09-26] MEDS: traZODone 50 MG TABLET PO SCH (20:20)
[2018-09-26] MEDS: MORPHINE 4 MG/1 ML VIAL IV PRN (20:28)
[2018-09-27] MEDS: methylPREDNISolone SOD SUC 125 MG/2 ML VIAL IV SCH ×3 (00:13→21:33)
[2018-09-27] MEDS: ALBUTEROL/IPRATROPIUM 3 ML NEB RESP TX SCH ×4 (00:55→19:18)
[2018-09-27] MEDS: MORPHINE 4 MG/1 ML VIAL IV PRN (03:30)
[2018-09-27] MEDS: PIPERACILLIN/TAZOBACTAM 3,375 MG in SODIUM CHLORIDE 0.9% 100 ML IV SCH ×3 (03:30→21:33)
[2018-09-27] MEDS: SODIUM CHLORIDE 0.9% 1,000 ML IV SCH ×2 (03:31→21:32)
[2018-09-27 05:20] LABS: Basophils % 0.2 % (0.0-0.8); Hematocrit 35.6 VOL% (42.0-52.0); Hemoglobin 10.9 GM/DL (14.0-18.0); Lymphocytes # 0.8 10*3/uL (1.4-4.0); Lymphocytes % 6.3 % (21.2-54.2); Mean Corpuscular HGB Conc 30.6 GM/DL (32-36); Mean Corpuscular Volume 82.6 FL (87-102); Mean Platelet Volume 10.6 FL (9.6-12.0); Monocytes % 1.1 % (1.7-12.7); NRBC # 0.02 10*3/uL; Neutrophils % 89.4 % (38.7-73.9); Platelet Count 254 T/CUMM (130-400); Red Blood Count 4.31 MC/CUMM (3.8-5.5); Red Cell Distribution Width 16.1 % (9.3-17.3); White Blood Count 13.4 T/CUMM (4-12)
[2018-09-27 05:40] LABS: Calcium 9.3 MG/DL (8.5-10.1); Osmolality,Calculated 296.6 MOS/KG (273-304)
[2018-09-27] MEDS ORDERED: POTASSIUM CHLORIDE 20 MEQ TABLET PO ONE ×2 (07:34→13:32)
[2018-09-27] MEDS: POTASSIUM CHLORIDE 20 MEQ TABLET PO SCH (08:25)
[2018-09-27] MEDS: tiZANidine 4 MG TABLET PO SCH ×2 (08:25→21:32)
[2018-09-27] MEDS: FERROUS SULFATE 325 MG TABLET PO SCH ×2 (08:25→21:32)
[2018-09-27] MEDS: acetaZOLAMIDE 250 MG TABLET PO SCH ×2 (08:25→21:32)
[2018-09-27] MEDS: POLYETHYLENE GLYCOL POWDER 17 GM PACK PO SCH (08:25)
[2018-09-27] MEDS: MULTIVITAMIN (CENTRUM) TABLET PO SCH (08:25)
[2018-09-27] MEDS: PANTOPRAZOLE 40 MG TABLET PO SCH (08:26)
[2018-09-27] MEDS: METOCLOPRAMIDE 10 MG TABLET PO SCH ×3 (08:26→16:32)
[2018-09-27] MEDS: CALCIUM (CARBONATE)/VITAMIN D 600 MG-400 UNIT TABLET PO SCH (08:26)
[2018-09-27] MEDS: ENOXAPARIN 40 MG/0.4 ML SYRINGE SUBCUT SCH (08:26)
[2018-09-27] MEDS: LINACLOTIDE 145 MCG CAPSULE PO SCH (08:33)
[2018-09-27] MEDS: traZODone 50 MG TABLET PO SCH (21:31)
[2018-09-28] MEDS: ALBUTEROL/IPRATROPIUM 3 ML NEB RESP TX SCH ×2 (00:10→07:50)
[2018-09-28 04:37] LABS: Calcium 9.1 MG/DL (8.5-10.1); Osmolality,Calculated 297.6 MOS/KG (273-304)
[2018-09-28] MEDS: PIPERACILLIN/TAZOBACTAM 3,375 MG in SODIUM CHLORIDE 0.9% 100 ML IV SCH (04:43)
[2018-09-28] MEDS ORDERED: POTASSIUM CHLORIDE 20 MEQ TABLET PO ONE (07:39)
[2018-09-28] MEDS: LINACLOTIDE 145 MCG CAPSULE PO SCH (08:00)
[2018-09-28] MEDS: METOCLOPRAMIDE 10 MG TABLET PO SCH (08:00)
[2018-09-28] MEDS: PANTOPRAZOLE 40 MG TABLET PO SCH (08:40)
[2018-09-28] MEDS: FERROUS SULFATE 325 MG TABLET PO SCH (08:40)
[2018-09-28] MEDS: tiZANidine 4 MG TABLET PO SCH (08:40)
[2018-09-28] MEDS: POTASSIUM CHLORIDE 20 MEQ TABLET PO SCH (08:40)
[2018-09-28] MEDS: MULTIVITAMIN (CENTRUM) TABLET PO SCH (08:40)
[2018-09-28] MEDS: acetaZOLAMIDE 250 MG TABLET PO SCH (08:41)
[2018-09-28] MEDS: CALCIUM (CARBONATE)/VITAMIN D 600 MG-400 UNIT TABLET PO SCH (08:41)
[2018-09-28] MEDS: POLYETHYLENE GLYCOL POWDER 17 GM PACK PO SCH (08:41)
[2018-09-28] MEDS: ENOXAPARIN 40 MG/0.4 ML SYRINGE SUBCUT SCH (08:41)
[2018-09-28] MEDS ORDERED: amLODIPine 10 MG TABLET PO SCH (09:00)
[2018-09-28 12:02] VITALS: BP 158/85
== END 2018-09-28 12:31 | DRG 194 ==
LOC: EDUNIT# → N.ED 00:47 → N.EDINP 02:49 → N.5E 03:16
PROVIDERS: ADMIT Internal Medicine; ATTEND Internal Medicine

== ENCOUNTER 2018-10-21 20:14 | Inpatient (IN) ==
[2018-10-21] MEDS ORDERED: ONDANSETRON 4 MG/2 ML VIAL IV STA (21:02)
[2018-10-21] MEDS ORDERED: ALBUTEROL NEB SOLN 5 MG/ML 20 ML/BOTTLE CONT NEB STA (21:09)
[2018-10-21] MEDS ORDERED: cefTRIAXone 1,000 MG in SODIUM CHLORIDE 0.9% 100 ML IV STA (21:17)
[2018-10-21] MEDS ORDERED: metroNIDAZOLE INJ 500 MG in PREMIX 1 EACH IV STA (21:18)
[2018-10-21] MEDS ORDERED: SODIUM CHLORIDE 0.9% 1,000 ML IV STA ×2 (21:34→21:41)
[2018-10-21] MEDS ORDERED: NOREPINEPHRINE 8 MG in SODIUM CHLORIDE 0.9% 242 ML IV PRN (21:52)
[2018-10-21] MEDS ORDERED: NOREPINEPHRINE 4 MG/4 ML VIAL IV ONE ×2 (22:03→22:05)
[2018-10-21] MEDS ORDERED: fentaNYL 100 MCG/2 ML VIAL ONE (22:07)
[2018-10-21] MEDS ORDERED: fentaNYL 2,500 MCG/50 ML VIAL IV ONE (22:09)
[2018-10-21] MEDS ORDERED: ROCURONIUM 100 MG/10 ML VIAL IV ONE (22:09)
[2018-10-21] MEDS ORDERED: ETOMIDATE 20 MG/10 ML VIAL IV ONE (22:09)
[2018-10-21] MEDS ORDERED: LIDOCAINE 1% 5 ML VIAL MISC INJ ONE (22:09)
[2018-10-21] MEDS ORDERED: SODIUM BICARBONATE 50 MEQ/50 ML VIAL IV ONE (22:31)
[2018-10-21] MEDS ORDERED: SODIUM BICARBONATE 50 MEQ/50 ML SYRINGE IV ONE (22:32)
[2018-10-21] MEDS ORDERED: EPINEPHrine 1 MG/10 ML SYRINGE ONE (22:33)
[2018-10-21 22:46] LABS: ABG Base Excess -8.9 MMOL/L (-2.5-2.5); ABG HCO3 17.3 MMOL/L (20-26); ABG Oxygen Saturation 99.6 % (95-100); ABG PCO2 46.1 MM HG (35-48); ABG PH 7.219 (7.35-7.45); ABG TCO2 17.3 MMOL/L (23-27)
[2018-10-21 23:35] LABS: Alanine Aminotransferase 287 U/L (16-61); Albumin 2.9 G/DL (3.4-5.0); Alkaline Phosphatase 252 U/L (45-117); Amylase 171 U/L (25-115); Aspartate Amino Transferase 325 U/L (0-37); Blood Urea Nitrogen 19 MG/DL (7-18); Glucose 84 MG/DL (74-106); Osmolality,Calculated 290.6 MOS/KG (273-304); Total Protein 7.2 G/DL (6.4-8.3); Troponin I < 0.015 NG/ML (0.00-0.045)
[2018-10-22 00:13] LABS: Basophils % 0.2 % (0.0-0.8); Hematocrit 36.2 VOL% (42.0-52.0); Hemoglobin 10.5 GM/DL (14.0-18.0); Immature Granulocytes % 0.6 %; Immature Granulocytes Absolute 0.06 #; Lymphocytes # 0.3 10*3/uL (1.4-4.0); Mean Corpuscular Volume 89.6 FL (87-102); Mean Platelet Volume 10.6 FL (9.6-12.0); Monocytes % 1.2 % (1.7-12.7); NRBC # 0.02 10*3/uL; Platelet Count 136 T/CUMM (130-400); Red Blood Count 4.04 MC/CUMM (3.8-5.5); Red Cell Distribution Width 17.1 % (9.3-17.3); White Blood Count 9.7 T/CUMM (4-12)
[2018-10-22 00:40] LABS: Anisocytosis 1+; Band Neutrophils 18 % (0-10); Eosinophils 1 % (0-10); Hypochromasia 1+; Lymphocytes 4 % (20-55); Metamyelocytes 2 %; Microcytosis Slight; Platelet Estimate Adequate; Segmented Neutrophils 74 % (50-85); Total Cells Counted 100
[2018-10-22] MEDS ORDERED: PROMETHAZINE 25 MG/1 ML VIAL IM PRN (00:50)
[2018-10-22] MEDS ORDERED: ONDANSETRON 4 MG/2 ML VIAL IV PRN (00:50)
[2018-10-22] MEDS ORDERED: ACETAMINOPHEN 325 MG TABLET PO PRN (00:50)
[2018-10-22] MEDS ORDERED: ROCURONIUM 100 MG/10 ML VIAL IV ONE (00:52)
[2018-10-22] MEDS ORDERED: ETOMIDATE 20 MG/10 ML VIAL IV ONE (00:52)
[2018-10-22 01:03] LABS: ABG Base Excess -13.1 MMOL/L (-2.5-2.5); ABG Oxygen Saturation 99.7 % (95-100); ABG PCO2 50.3 MM HG (35-48); ABG PO2 300.1 MM HG (80-95); ABG TCO2 17.5 MMOL/L (23-27)
[2018-10-22] MEDS: LACTATED RINGERS 1,000 ML IV SCH ×2 (01:06→07:30)
[2018-10-22] MEDS: POTASSIUM CHLORIDE RIDER 10 MEQ in PREMIX 1 EACH IV SCH ×2 (01:12→02:16)
[2018-10-22] MEDS: SODIUM BICARB INJ 100 MEQ in DEXTROSE 5% 1,000 ML IV SCH ×4 (01:12→22:44)
[2018-10-22] MEDS: NOREPINEPHRINE 16 MG in SODIUM CHLORIDE 0.9% 234 ML IV PRN ×3 (01:15→22:44)
[2018-10-22] MEDS ORDERED: LORazepam 2 MG/1 ML VIAL IV PRN (01:16)
[2018-10-22] MEDS: PIPERACILLIN/TAZOBACTAM 3,375 MG in SODIUM CHLORIDE 0.9% 100 ML IV SCH ×3 (01:22→18:10)
[2018-10-22] MEDS: PHENYLEPHRINE INJ 160 MG in SODIUM CHLORIDE 0.9% 234 ML IV PRN ×3 (01:35→20:25)
[2018-10-22] MEDS ORDERED: LACTATED RINGERS 500 ML IV ONE (01:42)
[2018-10-22] MEDS ORDERED: HYDROCORTISONE 100 MG VIAL IV ONE (01:48)
[2018-10-22] MEDS ORDERED: ALBUMIN 5% 25 GM in PREMIX 1 EACH IV ONE ×2 (01:49→12:03)
[2018-10-22] MEDS ORDERED: SODIUM BICARBONATE 50 MEQ/50 ML VIAL IV ONE ×3 (01:53→04:59)
[2018-10-22] MEDS ORDERED: DEXTROSE 50% 25 GM/50 ML VIAL IV PRN (01:54)
[2018-10-22] MEDS ORDERED: GLUCAGON 1 MG VIAL IM PRN (01:54)
[2018-10-22] MEDS: DEXMEDETOMIDINE 400 MCG in SODIUM CHLORIDE 0.9% 96 ML IV PRN ×2 (02:42→15:03)
[2018-10-22] MEDS: POTASSIUM CHLORIDE RIDER 20 MEQ in PREMIX 1 EACH IV SCH ×2 (03:00→05:00)
[2018-10-22 04:42] LABS: ABG Base Excess -13.6 MMOL/L (-2.5-2.5); ABG HCO3 13.7 MMOL/L (20-26); ABG Oxygen Saturation 99.2 % (95-100); ABG TCO2 14.9 MMOL/L (23-27)
[2018-10-22 04:43] LABS: ABG PH 7.187 (7.35-7.45)
[2018-10-22] MEDS ORDERED: LACTATED RINGERS 3,000 ML IV ONE (05:11)
[2018-10-22] MEDS: metroNIDAZOLE INJ 500 MG in PREMIX 1 EACH IV SCH ×3 (05:26→21:37)
[2018-10-22] MEDS: VASOPRESSIN 100 UNITS in SODIUM CHLORIDE 0.9% 95 ML IV SCH (05:43)
[2018-10-22] MEDS: INSULIN LISPRO 100 UNIT/ML SUBCUT SCH ×3 (05:45→18:11)
[2018-10-22 05:52] LABS: Hemoglobin 10.2 GM/DL (14.0-18.0); Mean Corpuscular HGB Conc 29.1 GM/DL (32-36); Mean Corpuscular Volume 89.7 FL (87-102); Mean Platelet Volume 10.8 FL (9.6-12.0); Platelet Count 151 T/CUMM (130-400); Red Cell Distribution Width 17.2 % (9.3-17.3); White Blood Count 12.8 T/CUMM (4-12)
[2018-10-22] MEDS: HYDROmorphone 2 MG/1 ML VIAL IV PRN ×2 (05:56→21:38)
[2018-10-22] MEDS ORDERED: LIDOCAINE 2% TOP JELLY 20 ML VIAL INTRAURETH ONE (06:24)
[2018-10-22 06:27] LABS: Albumin 2.6 G/DL (3.4-5.0); Bilirubin,Total 3.5 MG/DL (0.2-1.0); Calcium 8.2 MG/DL (8.5-10.1); Osmolality,Calculated 290.8 MOS/KG (273-304); Total Protein 6.4 G/DL (6.4-8.3)
[2018-10-22 06:55] LABS: Band Neutrophils 27 % (0-10); Eosinophils 1 % (0-10); Lymphocytes 2 % (20-55); Metamyelocytes 10 %; Nucleated Red Blood Cells 2 (0-5); Segmented Neutrophils 50 % (50-85); Total Cells Counted 100
[2018-10-22 06:56] LABS: Platelet Estimate Adequate
[2018-10-22] MEDS ORDERED: MAGNESIUM SULF RIDER 4 GM in PREMIX 1 EACH IV PRN (06:56)
[2018-10-22] MEDS ORDERED: MAGNESIUM SULF RIDER 2 GM in PREMIX 1 EACH IV PRN (06:56)
[2018-10-22] MEDS: HYDROCORTISONE 100 MG VIAL IV SCH ×3 (06:59→23:03)
[2018-10-22 08:31] LABS: ABG Base Excess -12.6 MMOL/L (-2.5-2.5); ABG HCO3 14.7 MMOL/L (20-26); ABG Oxygen Saturation 98.6 % (95-100); ABG TCO2 13.8 MMOL/L (23-27)
[2018-10-22 08:32] LABS: ABG PH 7.201 (7.35-7.45)
[2018-10-22] MEDS ORDERED: FAMOTIDINE 20 MG/2 ML VIAL IV SCH (09:00)
[2018-10-22] MEDS ORDERED: PANTOPRAZOLE 40 MG VIAL IV SCH (09:00)
[2018-10-22] MEDS ORDERED: MAGNESIUM SULF RIDER 2 GM in PREMIX 1 EACH IV ONE (09:17)
[2018-10-22] MEDS: POTASSIUM CHLORIDE RIDER 20 MEQ in PREMIX 1 EACH IV PRN ×2 (10:08→12:09)
[2018-10-22] MEDS ORDERED: PHENYLEPHRINE DRIP 40 MG/250 ML PREMIX IV PRN (10:15)
[2018-10-22] MEDS ORDERED: PHENYLEPHRINE DRIP 40 MG/250 ML PREMIX IV ONE (10:16)
[2018-10-22] MEDS: ALBUMIN 25% 25 GM in PREMIX 1 EACH IV SCH ×3 (10:32→21:37)
[2018-10-22] MEDS ORDERED: LACTATED RINGERS 2,000 ML IV ONE (10:38)
[2018-10-22] MEDS: POTASSIUM CHLORIDE RIDER 10 MEQ in PREMIX 1 EACH IV PRN (14:10)
[2018-10-22 15:04] LABS: ABG Base Excess -10.8 MMOL/L (-2.5-2.5); ABG HCO3 15.9 MMOL/L (20-26); ABG Oxygen Saturation 99.6 % (95-100); ABG PH 7.264 (7.35-7.45); ABG TCO2 14.3 MMOL/L (23-27)
[2018-10-22] MEDS: PANTOPRAZOLE 40 MG VIAL IV SCH ×2 (15:05→21:37)
[2018-10-22 16:11] LABS: Bilirubin,Total 2.8 MG/DL (0.2-1.0); Calcium 7.9 MG/DL (8.5-10.1); Osmolality,Calculated 289.1 MOS/KG (273-304); Total Protein 6.1 G/DL (6.4-8.3)
[2018-10-22 16:18] LABS: Basophils % 0.3 % (0.0-0.8); Eosinophils % 27.5 % (0.00-10.9); Immature Granulocytes % 1.2 %; Immature Granulocytes Absolute 0.13 #; Lymphocytes # 0.4 10*3/uL (1.4-4.0); Lymphocytes % 3.7 % (21.2-54.2); Mean Corpuscular HGB Conc 29.9 GM/DL (32-36); Mean Corpuscular Volume 87.7 FL (87-102); Mean Platelet Volume 11.9 FL (9.6-12.0); Monocytes % 4.7 % (1.7-12.7); NRBC # 0.02 10*3/uL; Neutrophils % 62.6 % (38.7-73.9); Red Blood Count 3.81 MC/CUMM (3.8-5.5); Red Cell Distribution Width 17.1 % (9.3-17.3); White Blood Count 10.9 T/CUMM (4-12)
[2018-10-22 16:23] LABS: Hematocrit 33.4 VOL% (42.0-52.0)
[2018-10-22 16:24] LABS: Platelet Count 107 T/CUMM (130-400)
[2018-10-22 16:34] LABS: Band Neutrophils 20 % (0-10); Lymphocytes 4 % (20-55); Metamyelocytes 22 %; Myelocytes 1 %; Segmented Neutrophils 48 % (50-85); Total Cells Counted 100
[2018-10-22 16:36] LABS: Anisocytosis 2+; Macrocytosis 2+; Microcytosis 1+
[2018-10-22 16:37] LABS: Platelet Estimate Decreased; Poikilocytosis 1+; Polychromasia Few
[2018-10-22 16:38] LABS: Acanthocytes Few; Burr Cells Slight
[2018-10-22 16:39] LABS: Apearance,Urine CLOUDY (Clear); Bilirubin,Urine Negative (Negative); Blood, Urine Large mg/dL (Negative); Glucose,Urine (UA) 50 mg/dL (Negative); Ketones,Urine Negative (Negative); Mucus,Urine Moderate /LPF (Occasional); Nitrite,Urine Negative (Negative); Protein,Urine 100 MG/DL; RBC,Urine 2219 /HPF (0-4); Urine Color Amber (Yellow); Urine Specific Gravity 1.009 (1.001-1.035); Urine Urobilinogen < 2.0 EU/DL (0.2-1.0); WBC,Urine 268 /HPF (0-6)
[2018-10-22 16:39] LABS: Elliptocytes Few
[2018-10-22] MEDS ORDERED: ENOXAPARIN 30 MG/0.3 ML SYRINGE SUBCUT SCH (18:00)
[2018-10-23] MEDS: INSULIN LISPRO 100 UNIT/ML SUBCUT SCH ×4 (00:34→18:48)
[2018-10-23] MEDS: VASOPRESSIN 100 UNITS in SODIUM CHLORIDE 0.9% 95 ML IV SCH (02:29)
[2018-10-23] MEDS: PIPERACILLIN/TAZOBACTAM 3,375 MG in SODIUM CHLORIDE 0.9% 100 ML IV SCH ×3 (02:41→18:32)
[2018-10-23 05:43] LABS: ABG Base Excess -8.3 MMOL/L (-2.5-2.5); ABG HCO3 17.7 MMOL/L (20-26); ABG Oxygen Saturation 99.3 % (95-100); ABG PCO2 34.1 MM HG (35-48); ABG TCO2 15.9 MMOL/L (23-27)
[2018-10-23] MEDS: PHENYLEPHRINE INJ 160 MG in SODIUM CHLORIDE 0.9% 234 ML IV PRN (05:52)
[2018-10-23 05:54] LABS: Basophils # 0.1 10*3/uL (0.0-0.2); Basophils % 0.3 % (0.0-0.8); Eosinophils % 0.1 % (0.00-10.9); Hematocrit 29.4 VOL% (42.0-52.0); Hemoglobin 9.1 GM/DL (14.0-18.0); Immature Granulocytes Absolute 0.15 #; Lymphocytes # 0.4 10*3/uL (1.4-4.0); Mean Corpuscular Volume 83.3 FL (87-102); Mean Platelet Volume 10.6 FL (9.6-12.0); Neutrophils % 91.6 % (38.7-73.9); Red Blood Count 3.53 MC/CUMM (3.8-5.5); White Blood Count 14.7 T/CUMM (4-12)
[2018-10-23 05:58] LABS: Platelet Count 53 T/CUMM (130-400)
[2018-10-23 06:00] LABS: Bilirubin,Total 2.6 MG/DL (0.2-1.0); Calcium 8.1 MG/DL (8.5-10.1); Osmolality,Calculated 290.1 MOS/KG (273-304); Total Protein 6.2 G/DL (6.4-8.3)
[2018-10-23] MEDS: SODIUM BICARB INJ 100 MEQ in DEXTROSE 5% 1,000 ML IV SCH ×3 (06:04→21:25)
[2018-10-23] MEDS: metroNIDAZOLE INJ 500 MG in PREMIX 1 EACH IV SCH ×3 (06:12→21:26)
[2018-10-23] MEDS: DEXMEDETOMIDINE 400 MCG in SODIUM CHLORIDE 0.9% 96 ML IV PRN (06:13)
[2018-10-23] MEDS: HYDROCORTISONE 100 MG VIAL IV SCH ×3 (06:14→23:04)
[2018-10-23 06:53] LABS: Band Neutrophils 16 % (0-10); Lymphocytes 3 % (20-55); Metamyelocytes 9 %; Myelocytes 4 %; Segmented Neutrophils 63 % (50-85)
[2018-10-23 06:54] LABS: Hypochromasia Slight; Ovalocytes 1+; Platelet Estimate Decreased; Total Cells Counted 100
[2018-10-23] MEDS: NOREPINEPHRINE 16 MG in SODIUM CHLORIDE 0.9% 234 ML IV PRN ×2 (08:59→21:33)
[2018-10-23] MEDS: PANTOPRAZOLE 40 MG VIAL IV SCH ×2 (10:10→21:26)
[2018-10-23] MEDS: POTASSIUM CHLORIDE RIDER 20 MEQ in PREMIX 1 EACH IV PRN ×2 (21:27→23:37)
[2018-10-24] MEDS: INSULIN LISPRO 100 UNIT/ML SUBCUT SCH ×4 (00:30→19:56)
[2018-10-24] MEDS: POTASSIUM CHLORIDE RIDER 10 MEQ in PREMIX 1 EACH IV PRN (01:18)
[2018-10-24] MEDS: VASOPRESSIN 100 UNITS in SODIUM CHLORIDE 0.9% 95 ML IV SCH (02:29)
[2018-10-24] MEDS: DEXMEDETOMIDINE 400 MCG in SODIUM CHLORIDE 0.9% 96 ML IV PRN ×2 (02:48→20:54)
[2018-10-24 03:52] LABS: ABG Base Excess -4.2 MMOL/L (-2.5-2.5); ABG HCO3 19.2 MMOL/L (20-26); ABG Oxygen Saturation 97.9 % (95-100); ABG PCO2 29.1 MM HG (35-48); ABG PH 7.438 (7.35-7.45); ABG TCO2 20.1 MMOL/L (23-27)
[2018-10-24] MEDS: PIPERACILLIN/TAZOBACTAM 3,375 MG in SODIUM CHLORIDE 0.9% 100 ML IV SCH (03:53)
[2018-10-24 03:54] LABS: Basophils # 0.1 10*3/uL (0.0-0.2); Basophils % 0.4 % (0.0-0.8); Hematocrit 26.3 VOL% (42.0-52.0); Hemoglobin 8.5 GM/DL (14.0-18.0); Immature Granulocytes % 0.4 %; Lymphocytes # 0.4 10*3/uL (1.4-4.0); Lymphocytes % 1.7 % (21.2-54.2); Mean Corpuscular HGB Conc 32.3 GM/DL (32-36); Mean Corpuscular Volume 80.4 FL (87-102); Monocytes % 2.6 % (1.7-12.7); Neutrophils % 94.9 % (38.7-73.9); Red Blood Count 3.27 MC/CUMM (3.8-5.5); Red Cell Distribution Width 16.5 % (9.3-17.3)
[2018-10-24 03:58] LABS: Platelet Count 33 T/CUMM (130-400)
[2018-10-24] MEDS: SODIUM BICARB INJ 100 MEQ in DEXTROSE 5% 1,000 ML IV SCH ×5 (04:20→21:30)
[2018-10-24 04:21] LABS: Albumin 2.6 G/DL (3.4-5.0); Calcium 8.1 MG/DL (8.5-10.1); Osmolality,Calculated 293.1 MOS/KG (273-304); Total Protein 5.6 G/DL (6.4-8.3)
[2018-10-24 04:32] LABS: Hypochromasia 1+; Platelet Estimate Decreased
[2018-10-24] MEDS ORDERED: POTASSIUM CHLORIDE RIDER 100 ML IV ONE (04:56)
[2018-10-24] MEDS: POTASSIUM CHLORIDE RIDER 20 MEQ in PREMIX 1 EACH IV PRN (05:27)
[2018-10-24] MEDS: metroNIDAZOLE INJ 500 MG in PREMIX 1 EACH IV SCH ×3 (05:53→20:55)
[2018-10-24] MEDS: HYDROCORTISONE 100 MG VIAL IV SCH ×3 (06:11→23:46)
[2018-10-24] MEDS: HYDROmorphone 2 MG/1 ML VIAL IV PRN (06:47)
[2018-10-24] MEDS: PANTOPRAZOLE 40 MG VIAL IV SCH ×2 (09:02→20:56)
[2018-10-24] MEDS: MEROPENEM 500 MG in SODIUM CHLORIDE 0.9% 100 ML IV SCH ×2 (09:25→20:56)
[2018-10-24] MEDS: POTASSIUM CHLORIDE RIDER 20 MEQ in PREMIX 1 EACH IV SCH ×3 (10:57→14:58)
[2018-10-24] MEDS: PHENYLEPHRINE INJ 160 MG in SODIUM CHLORIDE 0.9% 234 ML IV PRN (17:31)
[2018-10-25] MEDS: INSULIN LISPRO 100 UNIT/ML SUBCUT SCH ×4 (00:18→18:17)
[2018-10-25] MEDS: POTASSIUM CHLORIDE RIDER 20 MEQ in PREMIX 1 EACH IV PRN ×6 (00:26→18:28)
[2018-10-25] MEDS: POTASSIUM CHLORIDE RIDER 10 MEQ in PREMIX 1 EACH IV PRN (03:27)
[2018-10-25 04:07] LABS: ABG Base Excess 0.9 MMOL/L (-2.5-2.5); ABG HCO3 23.7 MMOL/L (20-26); ABG Oxygen Saturation 98.6 % (95-100); ABG PCO2 30.2 MM HG (35-48); ABG PH 7.512 (7.35-7.45); ABG PO2 129.9 MM HG (80-95); ABG TCO2 24.6 MMOL/L (23-27)
[2018-10-25] MEDS: VASOPRESSIN 100 UNITS in SODIUM CHLORIDE 0.9% 95 ML IV SCH (04:23)
[2018-10-25 04:26] LABS: Basophils # 0.1 10*3/uL (0.0-0.2); Basophils % 0.4 % (0.0-0.8); Hematocrit 23.9 VOL% (42.0-52.0); Hemoglobin 7.7 GM/DL (14.0-18.0); Immature Granulocytes % 7.2 %; Immature Granulocytes Absolute 1.49 #; Lymphocytes # 0.7 10*3/uL (1.4-4.0); Lymphocytes % 3.2 % (21.2-54.2); Mean Corpuscular HGB Conc 32.2 GM/DL (32-36); Mean Corpuscular Volume 79.4 FL (87-102); Monocytes % 3.7 % (1.7-12.7); NRBC # 0.02 10*3/uL; Neutrophils % 85.5 % (38.7-73.9); Red Blood Count 3.01 MC/CUMM (3.8-5.5); White Blood Count 20.7 T/CUMM (4-12)
[2018-10-25 04:31] LABS: Platelet Count 22 T/CUMM (130-400)
[2018-10-25 04:45] LABS: Band Neutrophils 1 % (0-10); Lymphocytes 4 % (20-55); Segmented Neutrophils 89 % (50-85); Total Cells Counted 100
[2018-10-25] MEDS ORDERED: SODIUM CHLORIDE 0.9% 1,000 ML IV PRN (04:45)
[2018-10-25 04:46] LABS: Hypochromasia 1+; Platelet Estimate Decreased
[2018-10-25 04:54] LABS: Bilirubin,Total 2.3 MG/DL (0.2-1.0); Osmolality,Calculated 297.1 MOS/KG (273-304); Total Protein 5.2 G/DL (6.4-8.3)
[2018-10-25] MEDS: metroNIDAZOLE INJ 500 MG in PREMIX 1 EACH IV SCH ×3 (05:31→20:35)
[2018-10-25] MEDS: SODIUM BICARB INJ 100 MEQ in DEXTROSE 5% 1,000 ML IV SCH ×2 (05:32→12:51)
[2018-10-25] MEDS: HYDROCORTISONE 100 MG VIAL IV SCH ×3 (06:03→23:14)
[2018-10-25] MEDS: PANTOPRAZOLE 40 MG VIAL IV SCH ×2 (08:50→20:35)
[2018-10-25] MEDS: MEROPENEM 500 MG in SODIUM CHLORIDE 0.9% 100 ML IV SCH ×2 (08:54→20:35)
[2018-10-25] MEDS: DEXMEDETOMIDINE 400 MCG in SODIUM CHLORIDE 0.9% 96 ML IV PRN ×2 (11:27→20:36)
[2018-10-25 15:42] LABS: Hematocrit 27.9 VOL% (42.0-52.0); Hemoglobin 9.1 GM/DL (14.0-18.0)
[2018-10-26] MEDS: INSULIN LISPRO 100 UNIT/ML SUBCUT SCH ×4 (01:13→18:21)
[2018-10-26 03:35] LABS: ABG Base Excess 2.2 MMOL/L (-2.5-2.5); ABG HCO3 26.4 MMOL/L (20-26); ABG Oxygen Saturation 98.4 % (95-100); ABG PO2 98.5 MM HG (80-95); ABG TCO2 21.5 MMOL/L (23-27)
[2018-10-26] MEDS: VASOPRESSIN 100 UNITS in SODIUM CHLORIDE 0.9% 95 ML IV SCH (04:04)
[2018-10-26] MEDS: metroNIDAZOLE INJ 500 MG in PREMIX 1 EACH IV SCH ×3 (04:32→21:31)
[2018-10-26 04:50] LABS: Basophils # 0.1 10*3/uL (0.0-0.2); Basophils % 0.3 % (0.0-0.8); Hematocrit 29.3 VOL% (42.0-52.0); Hemoglobin 10.2 GM/DL (14.0-18.0); Immature Granulocytes % 1.8 %; Immature Granulocytes Absolute 0.44 #; Lymphocytes # 1.1 10*3/uL (1.4-4.0); Lymphocytes % 4.4 % (21.2-54.2); Mean Corpuscular HGB Conc 34.8 GM/DL (32-36); Mean Corpuscular Volume 76.9 FL (87-102); Monocytes % 5.3 % (1.7-12.7); NRBC # 0.02 10*3/uL; Neutrophils % 88.2 % (38.7-73.9); Red Blood Count 3.81 MC/CUMM (3.8-5.5); Red Cell Distribution Width 15.6 % (9.3-17.3); White Blood Count 24.1 T/CUMM (4-12)
[2018-10-26 04:54] LABS: Platelet Count 25 T/CUMM (130-400)
[2018-10-26 05:12] LABS: Hypochromasia 1+; Lymphocytes 4 % (20-55); Platelet Estimate Decreased; Segmented Neutrophils 93 % (50-85); Target Cells Few; Total Cells Counted 100
[2018-10-26 05:19] LABS: Albumin 2.1 G/DL (3.4-5.0); Calcium 8.4 MG/DL (8.5-10.1); Osmolality,Calculated 299.1 MOS/KG (273-304); Prealbumin 7.3 MG/DL (20-40); Total Protein 5.6 G/DL (6.4-8.3)
[2018-10-26] MEDS: POTASSIUM CHLORIDE RIDER 20 MEQ in PREMIX 1 EACH IV PRN (05:26)
[2018-10-26] MEDS: DEXMEDETOMIDINE 400 MCG in SODIUM CHLORIDE 0.9% 96 ML IV PRN ×2 (07:22→18:15)
[2018-10-26] MEDS: HYDROCORTISONE 100 MG VIAL IV SCH ×2 (07:50→15:52)
[2018-10-26] MEDS: MEROPENEM 500 MG in SODIUM CHLORIDE 0.9% 100 ML IV SCH ×2 (10:00→21:32)
[2018-10-26] MEDS: PANTOPRAZOLE 40 MG VIAL IV SCH ×2 (10:00→21:31)
[2018-10-26] MEDS ORDERED: SODIUM PHOSPHATE INJ 30 MMOL in SODIUM CHLORIDE 0.9% 250 ML IV ONE (15:30)
[2018-10-26 17:37] LABS: INR 1.4; Partial Thromboplastin Time 31.7 SECS (0-40)
[2018-10-26 17:41] LABS: PT Patient Result 14.7 SECS
[2018-10-26 18:53] LABS: Hepatitis B Core IgM Quant 0.07 Index; Hepatitis B Surface Ag Quant 0.44 Index; Hepatitis B Surface Ag Result Negative (Negative); Hepatitis C Virus Ab Quant < 0.02 Index; Hepatitis C Virus Ab Result Negative (Negative)
[2018-10-27] MEDS: INSULIN LISPRO 100 UNIT/ML SUBCUT SCH ×4 (00:32→18:15)
[2018-10-27] MEDS: HYDROCORTISONE 100 MG VIAL IV SCH ×4 (00:32→18:26)
[2018-10-27] MEDS: DEXMEDETOMIDINE 400 MCG in SODIUM CHLORIDE 0.9% 96 ML IV PRN (03:52)
[2018-10-27 03:59] LABS: ABG Base Excess 1.3 MMOL/L (-2.5-2.5); ABG HCO3 25.6 MMOL/L (20-26); ABG Oxygen Saturation 98.9 % (95-100); ABG PCO2 28.5 MM HG (35-48); ABG PH 7.521 (7.35-7.45); ABG TCO2 20.9 MMOL/L (23-27)
[2018-10-27 04:05] LABS: Basophils # 0.1 10*3/uL (0.0-0.2); Basophils % 0.5 % (0.0-0.8); Hematocrit 30.9 VOL% (42.0-52.0); Hemoglobin 10.3 GM/DL (14.0-18.0); Immature Granulocytes % 1.8 %; Immature Granulocytes Absolute 0.52 #; Lymphocytes # 1.9 10*3/uL (1.4-4.0); Lymphocytes % 6.6 % (21.2-54.2); Mean Corpuscular HGB Conc 33.3 GM/DL (32-36); Mean Corpuscular Volume 77.6 FL (87-102); Monocytes % 6.3 % (1.7-12.7); NRBC # 0.02 10*3/uL; Neutrophils % 84.8 % (38.7-73.9); Platelet Count 48 T/CUMM (130-400); Red Blood Count 3.98 MC/CUMM (3.8-5.5); Red Cell Distribution Width 15.9 % (9.3-17.3); White Blood Count 28.4 T/CUMM (4-12)
[2018-10-27 04:18] LABS: Calcium 8.2 MG/DL (8.5-10.1)
[2018-10-27 04:36] LABS: Band Neutrophils 1 % (0-10); Hypochromasia 1+; Lymphocytes 4 % (20-55); Platelet Estimate Decreased; Segmented Neutrophils 84 % (50-85); Total Cells Counted 100
[2018-10-27] MEDS: POTASSIUM CHLORIDE RIDER 20 MEQ in PREMIX 1 EACH IV PRN (05:41)
[2018-10-27] MEDS: metroNIDAZOLE INJ 500 MG in PREMIX 1 EACH IV SCH ×3 (05:41→21:39)
[2018-10-27] MEDS: PANTOPRAZOLE 40 MG VIAL IV SCH ×2 (09:20→21:47)
[2018-10-27] MEDS: MEROPENEM 500 MG in SODIUM CHLORIDE 0.9% 100 ML IV SCH ×2 (10:15→21:31)
[2018-10-27 11:45] LABS: Hepatitis B Core IgM Quant 0.07 Index; Hepatitis B Surface Ag Quant < 0.10 Index; Hepatitis B Surface Ag Result Negative (Negative); Hepatitis C Virus Ab Quant < 0.02 Index; Hepatitis C Virus Ab Result Negative (Negative)
[2018-10-27 12:58] LABS: Apearance,Urine Slightly Hazy (Clear); Bilirubin,Urine Negative (Negative); Blood, Urine Moderate mg/dL (Negative); Glucose,Urine (UA) Negative (Negative); Ketones,Urine Negative (Negative); Nitrite,Urine Negative (Negative); Protein,Urine 30 MG/DL; RBC,Urine 182 /HPF (0-4); Squamous Epithelial Cell,Urine Occasional /HPF (0-10); Urine Color Yellow (Yellow); Urine Specific Gravity 1.011 (1.001-1.035); Urine Urobilinogen < 2.0 EU/DL (0.2-1.0); WBC,Urine 230 /HPF (0-6)
[2018-10-27] MEDS ORDERED: HEPARIN 10,000 UNIT/10 ML VIAL IV PRN (14:57)
[2018-10-27 16:27] LABS: INR 1.3; PT Patient Result 13.7 SECS; Partial Thromboplastin Time 29.1 SECS (0-40)
[2018-10-28] MEDS: INSULIN LISPRO 100 UNIT/ML SUBCUT SCH ×5 (00:04→23:36)
[2018-10-28] MEDS: DEXMEDETOMIDINE 400 MCG in SODIUM CHLORIDE 0.9% 96 ML IV PRN ×3 (01:31→21:27)
[2018-10-28 04:21] LABS: ABG Base Excess 0.7 MMOL/L (-2.5-2.5); ABG HCO3 25.1 MMOL/L (20-26); ABG Oxygen Saturation 98.4 % (95-100); ABG PCO2 29.9 MM HG (35-48); ABG PH 7.499 (7.35-7.45); ABG TCO2 20.9 MMOL/L (23-27)
[2018-10-28 04:28] LABS: Basophils # 0.2 10*3/uL (0.0-0.2); Basophils % 0.5 % (0.0-0.8); Hematocrit 29.5 VOL% (42.0-52.0); Hemoglobin 9.8 GM/DL (14.0-18.0); Immature Granulocytes % 3.4 %; Lymphocytes # 2.9 10*3/uL (1.4-4.0); Mean Corpuscular HGB Conc 33.2 GM/DL (32-36); Monocytes % 7.5 % (1.7-12.7); NRBC # 0.02 10*3/uL; Neutrophils % 79.6 % (38.7-73.9); Red Blood Count 3.78 MC/CUMM (3.8-5.5); Red Cell Distribution Width 16.2 % (9.3-17.3); White Blood Count 32.3 T/CUMM (4-12)
[2018-10-28 04:36] LABS: Platelet Count 68 T/CUMM (130-400)
[2018-10-28] MEDS: metroNIDAZOLE INJ 500 MG in PREMIX 1 EACH IV SCH ×3 (04:48→21:31)
[2018-10-28 04:54] LABS: Band Neutrophils 6 % (0-10); Lymphocytes 6 % (20-55); Segmented Neutrophils 84 % (50-85); Total Cells Counted 100
[2018-10-28 04:55] LABS: Bilirubin,Total 1.1 MG/DL (0.2-1.0); Osmolality,Calculated 311.7 MOS/KG (273-304); Platelet Estimate Decreased; Prealbumin 12.6 MG/DL (20-40); Total Protein 5.3 G/DL (6.4-8.3)
[2018-10-28] MEDS: HYDROCORTISONE 100 MG VIAL IV SCH ×2 (05:54→19:11)
[2018-10-28] MEDS ORDERED: PHENYLEPHRINE DRIP 40 MG/250 ML PREMIX IV PRN (09:17)
[2018-10-28] MEDS: ALLOPURINOL 300 MG TABLET PO SCH (10:43)
[2018-10-28] MEDS: PANTOPRAZOLE 40 MG VIAL IV SCH ×2 (10:43→21:29)
[2018-10-28] MEDS: MEROPENEM 500 MG in SODIUM CHLORIDE 0.9% 100 ML IV SCH (10:44)
[2018-10-28] MEDS: POTASSIUM CHLORIDE RIDER 20 MEQ in PREMIX 1 EACH IV PRN (10:44)
[2018-10-28] MEDS ORDERED: VANCOMYCIN INJ 1,000 MG in SODIUM CHLORIDE 0.9% 250 ML IV PRN (10:56)
[2018-10-28] MEDS ORDERED: VANCOMYCIN INJ 2,500 MG in SODIUM CHLORIDE 0.9% 500 ML IV ONE (11:30)
[2018-10-28] MEDS: MICAFUNGIN 100 MG in SODIUM CHLORIDE 0.9% 100 ML IV SCH (15:02)
[2018-10-28] MEDS: ZINC OXIDE PASTE 113 GM TUBE TOP SCH ×2 (20:00→21:52)
[2018-10-28] MEDS: HYDROmorphone 2 MG/1 ML VIAL IV PRN (20:43)
[2018-10-29] MEDS: HYDROCORTISONE 100 MG VIAL IV SCH ×4 (01:09→21:45)
[2018-10-29 04:13] LABS: ABG HCO3 24.4 MMOL/L (20-26); ABG Oxygen Saturation 97.3 % (95-100); ABG PCO2 31.5 MM HG (35-48); ABG PH 7.472 (7.35-7.45); ABG PO2 90.6 MM HG (80-95); ABG TCO2 20.7 MMOL/L (23-27); Allen Test Positive; Pt O2 Delivery Device Ventilator
[2018-10-29] MEDS: metroNIDAZOLE INJ 500 MG in PREMIX 1 EACH IV SCH ×3 (04:31→21:45)
[2018-10-29] MEDS: INSULIN LISPRO 100 UNIT/ML SUBCUT SCH ×3 (05:18→17:52)
[2018-10-29 07:42] LABS: Basophils # 0.1 10*3/uL (0.0-0.2); Basophils % 0.4 % (0.0-0.8); Hematocrit 28.8 VOL% (42.0-52.0); Hemoglobin 9.5 GM/DL (14.0-18.0); Immature Granulocytes % 3.7 %; Immature Granulocytes Absolute 1.08 #; Lymphocytes # 1.8 10*3/uL (1.4-4.0); Mean Corpuscular Volume 80.4 FL (87-102); Monocytes % 5.1 % (1.7-12.7); Neutrophils % 84.8 % (38.7-73.9); Platelet Count 120 T/CUMM (130-400); Red Blood Count 3.58 MC/CUMM (3.8-5.5); Red Cell Distribution Width 16.8 % (9.3-17.3); White Blood Count 29.6 T/CUMM (4-12)
[2018-10-29 08:04] LABS: Band Neutrophils 1 % (0-10); Hypochromasia 1+; Lymphocytes 4 % (20-55); Platelet Estimate Decreased; Segmented Neutrophils 90 % (50-85); Total Cells Counted 100
[2018-10-29 08:15] LABS: Albumin 2.2 G/DL (3.4-5.0); Bilirubin,Total 1.2 MG/DL (0.2-1.0); Calcium 8.1 MG/DL (8.5-10.1); Osmolality,Calculated 314.6 MOS/KG (273-304); Total Protein 5.2 G/DL (6.4-8.3)
[2018-10-29] MEDS: DEXMEDETOMIDINE 400 MCG in SODIUM CHLORIDE 0.9% 96 ML IV PRN ×3 (08:28→22:50)
[2018-10-29] MEDS: MEROPENEM 500 MG in SODIUM CHLORIDE 0.9% 100 ML IV SCH (09:44)
[2018-10-29] MEDS: PANTOPRAZOLE 40 MG VIAL IV SCH ×2 (09:44→21:45)
[2018-10-29] MEDS: ALLOPURINOL 300 MG TABLET PO SCH (09:46)
[2018-10-29] MEDS: ZINC OXIDE PASTE 113 GM TUBE TOP SCH ×2 (09:47→21:46)
[2018-10-29] MEDS ORDERED: ATROPINE 1 MG/10 ML SYRINGE IV PRN (10:50)
[2018-10-29] MEDS ORDERED: ONDANSETRON 4 MG/2 ML VIAL ONE (13:56)
[2018-10-29] MEDS: MICAFUNGIN 100 MG in SODIUM CHLORIDE 0.9% 100 ML IV SCH (14:47)
[2018-10-29] MEDS: POTASSIUM CHLORIDE RIDER 20 MEQ in PREMIX 1 EACH IV PRN (22:51)
[2018-10-30] MEDS: INSULIN LISPRO 100 UNIT/ML SUBCUT SCH ×4 (01:16→18:19)
[2018-10-30] MEDS: HYDROCORTISONE 100 MG VIAL IV SCH ×4 (01:54→20:29)
[2018-10-30 03:44] LABS: ABG Base Excess -1.4 MMOL/L (-2.5-2.5); ABG HCO3 23.3 MMOL/L (20-26); ABG Oxygen Saturation 98.4 % (95-100); ABG PCO2 25.5 MM HG (35-48); ABG PH 7.513 (7.35-7.45); ABG TCO2 18.5 MMOL/L (23-27)
[2018-10-30 03:49] LABS: Basophils # 0.1 10*3/uL (0.0-0.2); Basophils % 0.3 % (0.0-0.8); Hematocrit 29.3 VOL% (42.0-52.0); Hemoglobin 9.9 GM/DL (14.0-18.0); Immature Granulocytes % 3.8 %; Immature Granulocytes Absolute 1.12 #; Lymphocytes # 1.6 10*3/uL (1.4-4.0); Lymphocytes % 5.6 % (21.2-54.2); Mean Corpuscular HGB Conc 33.8 GM/DL (32-36); Mean Corpuscular Volume 78.3 FL (87-102); Mean Platelet Volume 13.6 FL (9.6-12.0); Monocytes % 3.1 % (1.7-12.7); Neutrophils % 87.2 % (38.7-73.9); Platelet Count 140 T/CUMM (130-400); Red Blood Count 3.74 MC/CUMM (3.8-5.5); Red Cell Distribution Width 16.3 % (9.3-17.3); White Blood Count 29.3 T/CUMM (4-12)
[2018-10-30 04:03] LABS: Albumin 2.1 G/DL (3.4-5.0); Bilirubin,Total 1.2 MG/DL (0.2-1.0); Calcium 8.1 MG/DL (8.5-10.1); Osmolality,Calculated 318.6 MOS/KG (273-304); Total Protein 5.8 G/DL (6.4-8.3)
[2018-10-30 05:00] LABS: Anisocytosis 1+; Lymphocytes 6 % (20-55); Platelet Estimate Adequate; Segmented Neutrophils 90 % (50-85); Total Cells Counted 100
[2018-10-30] MEDS: metroNIDAZOLE INJ 500 MG in PREMIX 1 EACH IV SCH ×3 (06:05→20:28)
[2018-10-30] MEDS: POTASSIUM CHLORIDE RIDER 20 MEQ in PREMIX 1 EACH IV PRN ×2 (06:06→16:17)
[2018-10-30] MEDS: DEXMEDETOMIDINE 400 MCG in SODIUM CHLORIDE 0.9% 96 ML IV PRN ×4 (06:27→21:35)
[2018-10-30] MEDS: ALLOPURINOL 300 MG TABLET PO SCH (08:17)
[2018-10-30] MEDS: PANTOPRAZOLE 40 MG VIAL IV SCH ×2 (08:18→20:28)
[2018-10-30] MEDS: ZINC OXIDE PASTE 113 GM TUBE TOP SCH ×2 (08:18→20:29)
[2018-10-30] MEDS: MEROPENEM 500 MG in SODIUM CHLORIDE 0.9% 100 ML IV SCH (08:18)
[2018-10-30] MEDS: hydrALAZINE 20 MG/1 ML VIAL IV PRN ×2 (09:07→11:52)
[2018-10-30] MEDS ORDERED: SODIUM CHLORIDE 0.45% 1,000 ML IV SCH (11:30)
[2018-10-30] MEDS: HEPARIN 5,000 UNIT/1 ML VIAL SUBCUT SCH ×2 (12:24→20:28)
[2018-10-30] MEDS: METOCLOPRAMIDE 10 MG/2 ML VIAL IV SCH ×2 (12:24→18:28)
[2018-10-30] MEDS: MICAFUNGIN 100 MG in SODIUM CHLORIDE 0.9% 100 ML IV SCH (15:13)
[2018-10-30] MEDS ORDERED: FUROSEMIDE 40 MG/4 ML VIAL IV ONE (15:38)
[2018-10-30] MEDS ORDERED: ALBUMIN 25% 25 GM in PREMIX 1 EACH IV ONE (15:38)
[2018-10-31] MEDS: INSULIN LISPRO 100 UNIT/ML SUBCUT SCH ×5 (00:33→23:13)
[2018-10-31] MEDS: METOCLOPRAMIDE 10 MG/2 ML VIAL IV SCH ×5 (00:33→23:47)
[2018-10-31] MEDS: DEXMEDETOMIDINE 400 MCG in SODIUM CHLORIDE 0.9% 96 ML IV PRN ×5 (03:32→20:00)
[2018-10-31] MEDS: HYDROCORTISONE 100 MG VIAL IV SCH ×4 (03:33→20:47)
[2018-10-31 04:22] LABS: ABG HCO3 21.9 MMOL/L (20-26); ABG Oxygen Saturation 99.5 % (95-100); ABG PCO2 26.4 MM HG (35-48); ABG PH 7.475 (7.35-7.45); ABG TCO2 17.5 MMOL/L (23-27); Basophils # 0.1 10*3/uL (0.0-0.2); Basophils % 0.2 % (0.0-0.8); Hematocrit 29.3 VOL% (42.0-52.0); Hemoglobin 9.8 GM/DL (14.0-18.0); Immature Granulocytes % 2.7 %; Immature Granulocytes Absolute 0.62 #; Lymphocytes # 1.2 10*3/uL (1.4-4.0); Lymphocytes % 4.9 % (21.2-54.2); Mean Corpuscular HGB Conc 33.4 GM/DL (32-36); Mean Corpuscular Volume 79.4 FL (87-102); Mean Platelet Volume 12.8 FL (9.6-12.0); Monocytes % 3.9 % (1.7-12.7); Neutrophils % 88.3 % (38.7-73.9); Platelet Count 175 T/CUMM (130-400); Red Blood Count 3.69 MC/CUMM (3.8-5.5); Red Cell Distribution Width 17.2 % (9.3-17.3); White Blood Count 23.3 T/CUMM (4-12)
[2018-10-31] MEDS: HEPARIN 5,000 UNIT/1 ML VIAL SUBCUT SCH ×3 (04:24→20:47)
[2018-10-31] MEDS: metroNIDAZOLE INJ 500 MG in PREMIX 1 EACH IV SCH ×3 (04:24→20:47)
[2018-10-31 04:56] LABS: Osmolality,Calculated 326.3 MOS/KG (273-304)
[2018-10-31] MEDS: POTASSIUM CHLORIDE RIDER 20 MEQ in PREMIX 1 EACH IV PRN (05:10)
[2018-10-31] MEDS: ALLOPURINOL 300 MG TABLET PO SCH (09:04)
[2018-10-31] MEDS: POTASSIUM CHLORIDE RIDER 10 MEQ in PREMIX 1 EACH IV PRN (09:04)
[2018-10-31] MEDS: ZINC OXIDE PASTE 113 GM TUBE TOP SCH ×2 (09:04→20:53)
[2018-10-31] MEDS: PANTOPRAZOLE 40 MG VIAL IV SCH ×2 (09:04→20:47)
[2018-10-31] MEDS: MEROPENEM 500 MG in SODIUM CHLORIDE 0.9% 100 ML IV SCH (09:09)
[2018-10-31] MEDS ORDERED: ALBUMIN 25% 25 GM in PREMIX 1 EACH IV ONE (14:12)
[2018-10-31] MEDS: MICAFUNGIN 100 MG in SODIUM CHLORIDE 0.9% 100 ML IV SCH (14:49)
[2018-10-31] MEDS: hydrALAZINE 20 MG/1 ML VIAL IV PRN (21:06)
[2018-11-01] MEDS: DEXMEDETOMIDINE 400 MCG in SODIUM CHLORIDE 0.9% 96 ML IV PRN ×4 (01:00→22:00)
[2018-11-01] MEDS: hydrALAZINE 20 MG/1 ML VIAL IV PRN (02:23)
[2018-11-01] MEDS: HYDROCORTISONE 100 MG VIAL IV SCH ×3 (03:52→17:33)
[2018-11-01] MEDS: HEPARIN 5,000 UNIT/1 ML VIAL SUBCUT SCH ×3 (03:56→21:20)
[2018-11-01 04:11] LABS: ABG Base Excess -2.8 MMOL/L (-2.5-2.5); ABG Oxygen Saturation 96.9 % (95-100); ABG PCO2 23.2 MM HG (35-48); ABG PH 7.519 (7.35-7.45); ABG PO2 81.5 MM HG (80-95); ABG TCO2 17.3 MMOL/L (23-27)
[2018-11-01 04:30] LABS: Basophils % 0.2 % (0.0-0.8); Hematocrit 27.2 VOL% (42.0-52.0); Hemoglobin 8.9 GM/DL (14.0-18.0); Immature Granulocytes % 2.6 %; Immature Granulocytes Absolute 0.45 #; Lymphocytes # 0.9 10*3/uL (1.4-4.0); Lymphocytes % 5.3 % (21.2-54.2); Mean Corpuscular HGB Conc 32.7 GM/DL (32-36); Mean Corpuscular Volume 79.8 FL (87-102); Mean Platelet Volume 12.1 FL (9.6-12.0); Monocytes % 4.8 % (1.7-12.7); Neutrophils % 87.1 % (38.7-73.9); Platelet Count 197 T/CUMM (130-400); Red Blood Count 3.41 MC/CUMM (3.8-5.5); Red Cell Distribution Width 17.7 % (9.3-17.3); White Blood Count 17.2 T/CUMM (4-12)
[2018-11-01 04:59] LABS: Calcium 8.1 MG/DL (8.5-10.1); Osmolality,Calculated 334.9 MOS/KG (273-304); Prealbumin 22.7 MG/DL (20-40)
[2018-11-01] MEDS: HYDROmorphone 2 MG/1 ML VIAL IV PRN (05:04)
[2018-11-01] MEDS ORDERED: LORazepam 2 MG/1 ML VIAL IV ONE (05:14)
[2018-11-01] MEDS: INSULIN LISPRO 100 UNIT/ML SUBCUT SCH ×4 (05:47→23:56)
[2018-11-01] MEDS: metroNIDAZOLE INJ 500 MG in PREMIX 1 EACH IV SCH ×3 (06:04→21:20)
[2018-11-01] MEDS: METOCLOPRAMIDE 10 MG/2 ML VIAL IV SCH ×3 (06:06→17:40)
[2018-11-01] MEDS: POTASSIUM CHLORIDE RIDER 20 MEQ in PREMIX 1 EACH IV PRN ×2 (07:08→09:53)
[2018-11-01] MEDS: MEROPENEM 500 MG in SODIUM CHLORIDE 0.9% 100 ML IV SCH (09:45)
[2018-11-01] MEDS: PANTOPRAZOLE 40 MG VIAL IV SCH ×2 (10:02→21:17)
[2018-11-01] MEDS: ALLOPURINOL 300 MG TABLET PO SCH (10:06)
[2018-11-01] MEDS: POTASSIUM CHLORIDE 20 MEQ/15 ML UDCUP PER TUBE SCH ×2 (12:42→15:08)
[2018-11-01] MEDS: ZINC OXIDE PASTE 113 GM TUBE TOP SCH ×2 (13:50→21:21)
[2018-11-01] MEDS: MICAFUNGIN 100 MG in SODIUM CHLORIDE 0.9% 100 ML IV SCH (15:25)
[2018-11-01] MEDS ORDERED: PROPOFOL 1,000 MG/100 ML BOTTLE IV ONE (21:55)
[2018-11-01] MEDS: PROPOFOL 1,000 MG/100 ML BOTTLE IV SCH (22:00)
[2018-11-02] MEDS: METOCLOPRAMIDE 10 MG/2 ML VIAL IV SCH ×4 (00:16→17:50)
[2018-11-02] MEDS: HYDROCORTISONE 100 MG VIAL IV SCH ×3 (03:06→17:48)
[2018-11-02] MEDS: HEPARIN 5,000 UNIT/1 ML VIAL SUBCUT SCH ×3 (03:06→20:23)
[2018-11-02 04:48] LABS: ABG Base Excess -2.6 MMOL/L (-2.5-2.5); ABG HCO3 22.2 MMOL/L (20-26); ABG Oxygen Saturation 99.2 % (95-100); ABG PCO2 26.1 MM HG (35-48); ABG PH 7.489 (7.35-7.45); ABG TCO2 18.1 MMOL/L (23-27)
[2018-11-02 04:56] LABS: Basophils % 0.2 % (0.0-0.8); Hematocrit 33.2 VOL% (42.0-52.0); Hemoglobin 10.8 GM/DL (14.0-18.0); Immature Granulocytes % 1.6 %; Immature Granulocytes Absolute 0.27 #; Lymphocytes # 0.8 10*3/uL (1.4-4.0); Lymphocytes % 4.4 % (21.2-54.2); Mean Corpuscular HGB Conc 32.5 GM/DL (32-36); Mean Corpuscular Volume 80.4 FL (87-102); Neutrophils % 87.8 % (38.7-73.9); Platelet Count 174 T/CUMM (130-400); Red Blood Count 4.13 MC/CUMM (3.8-5.5); Red Cell Distribution Width 18.7 % (9.3-17.3); White Blood Count 17.4 T/CUMM (4-12)
[2018-11-02] MEDS: metroNIDAZOLE INJ 500 MG in PREMIX 1 EACH IV SCH ×3 (05:05→20:24)
[2018-11-02 05:23] LABS: Lymphocytes 3 % (20-55); Segmented Neutrophils 92 % (50-85); Total Cells Counted 100
[2018-11-02 05:24] LABS: Hypochromasia 1+; Platelet Estimate Adequate
[2018-11-02 05:26] LABS: Calcium 8.5 MG/DL (8.5-10.1); Osmolality,Calculated 329.7 MOS/KG (273-304)
[2018-11-02] MEDS: INSULIN LISPRO 100 UNIT/ML SUBCUT SCH ×3 (05:38→17:47)
[2018-11-02] MEDS: POTASSIUM CHLORIDE RIDER 20 MEQ in PREMIX 1 EACH IV PRN ×2 (05:45→09:40)
[2018-11-02] MEDS: PROPOFOL 1,000 MG/100 ML BOTTLE IV SCH (06:55)
[2018-11-02] MEDS: MEROPENEM 500 MG in SODIUM CHLORIDE 0.9% 100 ML IV SCH (09:43)
[2018-11-02] MEDS: PANTOPRAZOLE 40 MG VIAL IV SCH ×2 (09:49→20:20)
[2018-11-02] MEDS: ALLOPURINOL 300 MG TABLET PO SCH (09:51)
[2018-11-02] MEDS: ZINC OXIDE PASTE 113 GM TUBE TOP SCH ×2 (15:03→20:27)
[2018-11-02] MEDS: MICAFUNGIN 100 MG in SODIUM CHLORIDE 0.9% 100 ML IV SCH (15:15)
[2018-11-02] MEDS: hydrALAZINE 20 MG/1 ML VIAL IV PRN (22:05)
[2018-11-03] MEDS: INSULIN LISPRO 100 UNIT/ML SUBCUT SCH ×5 (00:02→22:45)
[2018-11-03] MEDS: METOCLOPRAMIDE 10 MG/2 ML VIAL IV SCH ×4 (00:15→18:43)
[2018-11-03] MEDS: HYDROmorphone 2 MG/1 ML VIAL IV PRN (01:25)
[2018-11-03] MEDS: HYDROCORTISONE 100 MG VIAL IV SCH ×2 (01:31→15:53)
[2018-11-03] MEDS: hydrALAZINE 20 MG/1 ML VIAL IV PRN ×2 (02:48→12:14)
[2018-11-03] MEDS: HEPARIN 5,000 UNIT/1 ML VIAL SUBCUT SCH ×3 (04:18→21:36)
[2018-11-03] MEDS: metroNIDAZOLE INJ 500 MG in PREMIX 1 EACH IV SCH ×3 (04:18→21:35)
[2018-11-03 04:20] LABS: ABG Oxygen Saturation 96.7 % (95-100); ABG PCO2 33.7 MM HG (35-48); ABG PH 7.413 (7.35-7.45); ABG PO2 100.4 MM HG (80-95); ABG TCO2 22.1 MMOL/L (23-27)
[2018-11-03 04:24] LABS: Basophils # 0.1 10*3/uL (0.0-0.2); Basophils % 0.3 % (0.0-0.8); Hematocrit 30.6 VOL% (42.0-52.0); Hemoglobin 9.7 GM/DL (14.0-18.0); Immature Granulocytes % 1.5 %; Immature Granulocytes Absolute 0.42 #; Lymphocytes # 0.9 10*3/uL (1.4-4.0); Lymphocytes % 3.2 % (21.2-54.2); Mean Corpuscular HGB Conc 31.7 GM/DL (32-36); Mean Corpuscular Volume 83.4 FL (87-102); Monocytes % 4.1 % (1.7-12.7); Neutrophils % 90.9 % (38.7-73.9); Platelet Count 226 T/CUMM (130-400); Red Blood Count 3.67 MC/CUMM (3.8-5.5); Red Cell Distribution Width 19.2 % (9.3-17.3); White Blood Count 28.4 T/CUMM (4-12)
[2018-11-03 04:42] LABS: Albumin 2.8 G/DL (3.4-5.0); Bilirubin,Total 1.2 MG/DL (0.2-1.0); Calcium 8.6 MG/DL (8.5-10.1); Osmolality,Calculated 322.9 MOS/KG (273-304); Total Protein 6.6 G/DL (6.4-8.3)
[2018-11-03 04:57] LABS: Hypochromasia 1+; Lymphocytes 3 % (20-55); Ovalocytes Slight; Platelet Estimate Adequate; Segmented Neutrophils 95 % (50-85); Total Cells Counted 100
[2018-11-03] MEDS: POTASSIUM CHLORIDE RIDER 20 MEQ in PREMIX 1 EACH IV PRN ×3 (05:04→22:43)
[2018-11-03] MEDS: ALLOPURINOL 300 MG TABLET PO SCH (10:01)
[2018-11-03] MEDS: MEROPENEM 500 MG in SODIUM CHLORIDE 0.9% 100 ML IV SCH (10:01)
[2018-11-03] MEDS: ZINC OXIDE PASTE 113 GM TUBE TOP SCH ×2 (10:02→21:38)
[2018-11-03] MEDS: PANTOPRAZOLE 40 MG VIAL IV SCH ×2 (10:02→21:34)
[2018-11-03] MEDS ORDERED: cefTRIAXone 1,000 MG in SYRINGE 1 EACH IV ONE (11:15)
[2018-11-03] MEDS ORDERED: HYDROmorphone 2 MG/1 ML VIAL IV PRN (11:20)
[2018-11-03] MEDS ORDERED: HYDROCORTISONE 100 MG VIAL IV SCH (13:00)
[2018-11-03] MEDS: MICAFUNGIN 100 MG in SODIUM CHLORIDE 0.9% 100 ML IV SCH (15:54)
[2018-11-03] MEDS ORDERED: POTASSIUM CHLORIDE RIDER 10 MEQ in PREMIX 1 EACH IV PRN (20:00)
[2018-11-04] MEDS: METOCLOPRAMIDE 10 MG/2 ML VIAL IV SCH ×3 (00:34→11:41)
[2018-11-04] MEDS: hydrALAZINE 20 MG/1 ML VIAL IV PRN (00:36)
[2018-11-04] MEDS: POTASSIUM CHLORIDE RIDER 20 MEQ in PREMIX 1 EACH IV PRN (00:38)
[2018-11-04] MEDS: HYDROCORTISONE 100 MG VIAL IV SCH ×2 (02:02→13:30)
[2018-11-04] MEDS: HEPARIN 5,000 UNIT/1 ML VIAL SUBCUT SCH ×2 (04:30→11:40)
[2018-11-04] MEDS: metroNIDAZOLE INJ 500 MG in PREMIX 1 EACH IV SCH ×2 (04:31→13:21)
[2018-11-04 07:06] LABS: Basophils # 0.1 10*3/uL (0.0-0.2); Basophils % 0.2 % (0.0-0.8); Hematocrit 29.1 VOL% (42.0-52.0); Hemoglobin 9.2 GM/DL (14.0-18.0); Immature Granulocytes % 1.3 %; Immature Granulocytes Absolute 0.34 #; Lymphocytes # 1.2 10*3/uL (1.4-4.0); Lymphocytes % 4.7 % (21.2-54.2); Mean Corpuscular HGB Conc 31.6 GM/DL (32-36); Mean Corpuscular Volume 82.9 FL (87-102); Monocytes % 8.1 % (1.7-12.7); Neutrophils % 85.7 % (38.7-73.9); Platelet Count 217 T/CUMM (130-400); Red Blood Count 3.51 MC/CUMM (3.8-5.5); Red Cell Distribution Width 19.5 % (9.3-17.3)
[2018-11-04 07:24] LABS: Albumin 2.6 G/DL (3.4-5.0); Bilirubin,Total 1.4 MG/DL (0.2-1.0); Calcium 8.7 MG/DL (8.5-10.1); Osmolality,Calculated 323.6 MOS/KG (273-304); Total Protein 6.4 G/DL (6.4-8.3)
[2018-11-04 07:31] LABS: Hypochromasia 1+; Lymphocytes 3 % (20-55); Platelet Estimate Adequate; Segmented Neutrophils 92 % (50-85); Total Cells Counted 100
[2018-11-04] MEDS: INSULIN LISPRO 100 UNIT/ML SUBCUT SCH ×2 (07:40→11:40)
[2018-11-04] MEDS ORDERED: cefTRIAXone 1,000 MG in SYRINGE 1 EACH IV ONE (08:00)
[2018-11-04] MEDS: MEROPENEM 500 MG in SODIUM CHLORIDE 0.9% 100 ML IV SCH (08:12)
[2018-11-04] MEDS: PANTOPRAZOLE 40 MG VIAL IV SCH (08:12)
[2018-11-04] MEDS: ZINC OXIDE PASTE 113 GM TUBE TOP SCH (08:13)
[2018-11-04] MEDS: ALLOPURINOL 300 MG TABLET PO SCH (08:13)
[2018-11-04] MEDS ORDERED: PROPOFOL 200 MG/20 ML VIAL IV ONE (13:37)
[2018-11-04] MEDS ORDERED: SODIUM CHLORIDE 0.9% 250 ML IV ONE (13:38)
[2018-11-04] MEDS ORDERED: SEVOFLURANE 1 UNIT/15 MINUTE INH ONE (13:38)
[2018-11-04] MEDS ORDERED: ROCURONIUM 100 MG/10 ML VIAL IV ONE (13:38)
[2018-11-04] MEDS ORDERED: ONDANSETRON 4 MG/2 ML VIAL ONE (13:38)
[2018-11-04] MEDS ORDERED: SUCCINYLCHOLINE 200 MG/10 ML VIAL ONE (13:38)
[2018-11-04] MEDS ORDERED: fentaNYL 100 MCG/2 ML VIAL ONE (13:45)
[2018-11-04 14:00] VITALS: BP 137/84
[2018-11-04] MEDS: MICAFUNGIN 100 MG in SODIUM CHLORIDE 0.9% 100 ML IV SCH (15:30)
== END 2018-11-04 15:40 | DRG 870 ==
LOC: EDBD → EDUNIT# → N.ED 20:14 → N.EDINP 22:56 → SUATTDRO 22:56 → N.CC 10-22 00:36 → N.3E 11-03 13:16
PROVIDERS: ADMIT Surgery; ATTEND Surgery